=== PATIENT | male | born 1960 ===

== ENCOUNTER 2017-02-11 08:49 | Emergency (ER) | payer MEDICAID ==
[2017-02-11 08:54] VITALS: TEMP 97.9; BMI 24.4
--- NOTE | 2017-02-11 08:57 | C.PDOC ---
History Of Present Illness 56 yr old male brought in via BLS, presents to the ER for a breakthrough seizure x at 0600, similar to prior, onset LUE. Patient states he still feels like seizure may occur. Patient is s/p Keppra 1500mg this morning (usual dose). Family states the last breakthrough seizure was 1 month ago and the dosage of medicine was increased. States this is the first breakthrough seizure since the medication changes. Patient denies chest pain, SOB, nausea, vomiting or headache. Patient has a history of hemorrhagic CVA in 2016. BREAKTHROUGH SZ X 3 @ 0600. SZ SIM TO PRIOR, ONSET LUE. PS STILL FEELS LIKE SZ MAY RECUR. S/P KEPPRA 1500 MG THIS MORNING (USUAL DOSE). FAMILY STATES LAST BREAKTHROUGH SZ 1 MONTH AGO, SZ MEDS DOSE INCREASED. THIS IS FIRST BREAKTHROUGH SZ SINCE DOSE ADJUST. NO QUINTERO, [place], TRAUMA. HO hemorrhagic cva 2015 EXAM MILD DIST NONTOXIC HEENT ATRAUM NEURO AO3, APPROPRIATE INTERACTIVE AND RESPONSE TO COMMANDS. CHRONIC LUE HEMIPARESIS W OCC INVOL TREMORS. POOR COORDINATION LLE, MOTOR WNL. MOTOR, CEREBELLAR WNL RUE/RLE REMAINDER NEG Time Seen by Provider: 02/11/17 08:52 Chief Complaint (Nursing): Seizure History Per: Patient, Family History/Exam Limitations: no limitations Recent Seizure Activity Began: Just Before Arrival Past Medical History Reviewed: Historical Data, Nursing Documentation, Vital Signs Vital Signs: Last Vital Signs Temp 97.9 F 02/11/17 08:50 Pulse 59 L 02/11/17 10:03 Resp 17 02/11/17 10:03 BP 122/72 02/11/17 10:03 Pulse Ox 99 02/11/17 10:57 - Medical History PMH: Asthma, CVA, Diabetes, HTN, Hypercholesterolemia, Seizures - [facility] Procedures GAIT TRAINING/AMBULAT TREATMENT USING ASSIST EQUIPMENT (11/16/15) INTRODUCTION OF SERUM/TOX/VACCINE INTO MUSCLE, PERC APPROACH (11/16/15) THERAPEUTIC EXERCISE TREATMENT OF MUSCULOSK LOW BACK/LE (11/16/15) THERAPEUTIC EXERCISE TREATMENT OF MUSCULOSK UP BACK/UE (11/16/15) Family History: States: No Known Family Hx - Social History Hx Tobacco Use: No Hx Alcohol Use: No Hx Substance Use: No - Immunization History Hx Tetanus Toxoid Vaccination: Yes (>5yrs) Hx Influenza Vaccination: No Hx Pneumococcal Vaccination: No Review Of Systems Except As Marked, All Systems Reviewed And Found Negative. Cardiovascular: Negative for: Chest Pain Respiratory: Negative for: Shortness of Breath Gastrointestinal: Negative for: Nausea, Vomiting Neurological: Positive for: Seizures. Negative for: Headache Physical Exam - Physical Exam Appears: Non-toxic, In Acute Distress (Mild) Skin: Warm, Dry, No Rash Head: Atraumatic, Normacephalic Oral Mucosa: Moist Tongue: Normal Appearing Lips: Normal Appearing Chest: Symmetrical, No Tenderness Cardiovascular: Rhythm Regular, No Murmur Respiratory: Normal Breath Sounds, No Rales, No Rhonchi, No Stridor, No Wheezing Extremity: Other (Chronic LUE hemiparesis with occasional involuntary tremors. Poor coordination LLE. ) Neurological/Psych: Oriented x3, Normal Speech, Normal Cognition, Normal Cranial Nerves, Normal Motor ED Course And Treatment - Laboratory Results Result Diagrams: 02/11/17 09:25 02/11/17 09:25 O2 Sat by Pulse Oximetry: 99 (RA) Pulse Ox Interpretation: Normal - CT Scan/US CT - Head Other Rad Studies (CT/US): Read By Radiologist, Radiology Report Reviewed CT/US Interpretation: PROCEDURE: CT HEAD WITHOUT CONTRAST. HISTORY: BREAKTHROUGH SZ CHRONIC LLE. COMPARISON: Noncontrast head CT performed . TECHNIQUE: Axial computed tomography images were obtained through the head /brain without intravenous contrast. Radiation dose: Total exam DLP = 1091.76 mGy-cm. This CT exam was performed using one or more of the following dose reduction techniques: Automated exposure control, adjustment of the mA and/or kV according to patient size, and/or use of iterative reconstruction technique. FINDINGS: HEMORRHAGE: No intracranial hemorrhage. BRAIN: Diffuse atrophy with prominence of the ventricles and sulci noted. No mass effect or edema. Intracranial atherosclerosis. Right frontal encephalomalacia. Scattered periventricular and subcortical white matter hypodensities, which are nonspecific, but often seen with chronic microvascular ischemic disease. Please note that MRI with diffusion imaging is more sensitive in the detection of acute ischemic event. VENTRICLES: No hydrocephalus. CALVARIUM: Unremarkable. PARANASAL SINUSES: Unremarkable as visualized. No significant inflammatory changes. MASTOID AIR CELLS: Unremarkable as visualized. No inflammatory changes. OTHER FINDINGS: None. IMPRESSION: Right frontal encephalomalacia. Additional nonspecific white matter changes. Generalized atrophy. Progress - Re-Evaluation Re-evaluation Note: 02/11/17 10:56 NO RECUR SZ. TREMORS RESOLVED. CT REPORT PENDING 02/11/17 11:54 NO RECUR SZ SINCE PRIOR EVAL. PENDING NEURO APPT THIS AFTERNOON W NEW NEUROLOGIST. DC - Data Reviewed Data Reviewed: Lab, Diagnostic imaging, Old records - Critical Care Citical Care: Excluding Proc Time Critical Care Time: 120 minutes - Continuity of Care Discussed patient case with:: Patient, Family-HIPPA compliant Medical Decision Making Medical Decision Making: PLAN: * CT - Head * CBC * CMP * Ativan IVP Disposition Counseled Patient/Family Regarding: Studies Performed, Diagnosis, Need For Followup - Disposition Referrals: YOUR,NEUROLOGIST [Other] Disposition: HOME/ ROUTINE Disposition Time: 11:54 Condition: IMPROVED Instructions: Recurrent Seizures in Adults (ED) Forms: [employer] (Kyrgyz) Print Language: GREENLANDIC - Clinical Impression Clinical Impression: Breakthrough seizure - Scribe Statement The provider has reviewed the documentation as recorded by the Pao Wise Provider Attestation: All medical record entries made by the Pao were at my direction and personally dictated by me. I have reviewed the chart and agree that the record accurately reflects my personal performance of the history, physical exam, medical decision making, and the department course for this patient. I have also personally directed, reviewed, and agree with the discharge instructions and disposition.
[2017-02-11 09:29] LABS: BASO # 0.1 K/uL (0.0-0.2); BASO % 1.9 % (0.0-2.0); EOS # 0.9 K/uL (0.0-0.7); EOS % 17.5 % (0.0-4.0); HEMATOCRIT 42.8 % (35.0-51.0); LYMPH # 1.8 K/uL (1.0-4.3); LYMPH % 33.3 % (20.0-40.0); MEAN CORPUSCULAR HEMOGLOBIN 28.5 pg (27.0-31.0); MEAN CORPUSCULAR HGB CONC 33.7 g/dL (33.0-37.0); MEAN PLATELET VOLUME 9.6 fL (7.2-11.7); MONO # 0.6 K/uL (0.0-0.8); MONO % 11.8 % (0.0-10.0); NRBC % 0.1 % (0.0-2.0); RED CELL DISTRIBUTION WIDTH 15.3 % (11.5-14.5); WHITE BLOOD COUNT 5.3 K/uL (4.8-10.8)
[2017-02-11 09:34] LABS: MEAN CELL VOLUME 84.4 fL (80.0-94.0)
[2017-02-11 09:36] LABS: CHLORIDE 103 mmol/L (98-107); POTASSIUM 3.9 mmol/L (3.6-5.2); SODIUM 140 mmol/L (132-148)
[2017-02-11 09:39] LABS: BLOOD UREA NITROGEN 13 mg/dL (9-20); CALCIUM 10.5 mg/dl (8.6-10.4); CARBON DIOXIDE 21 mmol/L (22-30); GFR AFRICAN-AMERICAN > 60; GLUCOSE,RANDOM 127 mg/dL (75-110)
--- NOTE | 2017-02-11 10:46 | CT ---
PROCEDURE: CT HEAD WITHOUT CONTRAST. HISTORY: BREAKTHROUGH SZ CHRONIC LLE COMPARISON: Noncontrast head CT performed 02/28/16 TECHNIQUE: Axial computed tomography images were obtained through the head/brain without intravenous contrast. Radiation dose: Total exam DLP = 1091.76 mGy-cm. This CT exam was performed using one or more of the following dose reduction techniques: Automated exposure control, adjustment of the mA and/or kV according to patient size, and/or use of iterative reconstruction technique. FINDINGS: HEMORRHAGE: No intracranial hemorrhage. BRAIN: Diffuse atrophy with prominence of the ventricles and sulci noted. No mass effect or edema. Intracranial atherosclerosis. Right frontal encephalomalacia. Scattered periventricular and subcortical white matter hypodensities, which are nonspecific, but often seen with chronic microvascular ischemic disease. Please note that MRI with diffusion imaging is more sensitive in the detection of acute ischemic event. VENTRICLES: No hydrocephalus. CALVARIUM: Unremarkable. PARANASAL SINUSES: Unremarkable as visualized. No significant inflammatory changes. MASTOID AIR CELLS: Unremarkable as visualized. No inflammatory changes. OTHER FINDINGS: None. IMPRESSION: Right frontal encephalomalacia. Additional nonspecific white matter changes. Generalized atrophy.
[2017-02-11 12:09] VITALS: BP 106/76; PULSE 62; RESP 16; O2SAT 97
== END 2017-02-11 12:38 | disposition home or self-care (01) ==
LOC: C.ER 08:49
DX: G40.909 Epilepsy, unspecified, not intractable, without status epilepticus (principal); I10 Essential (primary) hypertension; E11.9 Type 2 diabetes mellitus without complications
CPT/HCPCS: 70450; 80048; 82948; 85025; 96374; 99285; J2060

== ENCOUNTER 2017-08-22 21:36 | Inpatient (IN) | payer MEDICAID ==
[2017-08-22 21:36] VITALS: PULSE 120; BMI 27.0
[2017-08-22] MEDS ORDERED: Sodium Chloride 0.9% 1,000 ML IV ONE (21:58)
--- NOTE | 2017-08-22 22:06 | C.PDOC ---
History Of Present Illness 57 y/o male with Hx of seizures and CVA presents to ED with complaints of having seizure at home and brought in by MICU. Hx of previous seizure due to old CVA and encephalomalacia.. Presently complaining of mild lower chest discomfort and mild upper abd pain. Chief Complaint (Nursing): Seizure History Per: Patient History/Exam Limitations: no limitations Recent Seizure Activity Began: Hours Ago: Number Of Seizures: One Length Of Seizures (Duration): Minutes (1 to 2 min,) Quality Of Seizure: Generalized Precipitating Factor(s): None Associated Symptoms: Other (left sided weakness) Post-ictal Period: Duration Unknown Severity: Moderate Pain Scale Rating Of: 2 Recent travel outside of the [place]: No Additional History Per: Family Past Medical History Reviewed: Historical Data, Nursing Documentation, Vital Signs Vital Signs: Last Vital Signs Temp 98.6 F 08/22/17 21:45 Pulse 95 H 08/22/17 21:45 Resp 20 08/22/17 21:45 BP 143/84 08/22/17 21:45 Pulse Ox 97 08/22/17 23:37 - Medical History PMH: Asthma, CVA, Diabetes, HTN, Hypercholesterolemia, Seizures Denies: Bipolar Disorder, Bronchitis, CAD, Cardia Arrhythmia, CHF, COPD, Crohn's Disease, Dementia, Depression, Diverticulitis, Emphysema, Fractures, Gastritis, Gall Bladder Disease, Peripheral Edema, Pneumonia, Post Traumatic Stress Disorder, Pulmonary Embolism, Chronic Kidney Disease, Rheumatoid Arthritis, Schizophrenia, Sickle Cell Disease, Sexually Transmitted Disease, Sleep Apnea, TIA Surgical History: No Surg Hx Denies: Appendectomy, CABG, Carotid Endarterectomy, Cholecystectomy, Coronary Stent, Pacemaker, Tonsillectomy - [facility] Procedures GAIT TRAINING/AMBULAT TREATMENT USING ASSIST EQUIPMENT (11/16/15) INTRODUCTION OF SERUM/TOX/VACCINE INTO MUSCLE, PERC APPROACH (11/16/15) THERAPEUTIC EXERCISE TREATMENT OF MUSCULOSK LOW BACK/LE (11/16/15) THERAPEUTIC EXERCISE TREATMENT OF MUSCULOSK UP BACK/UE (11/16/15) Family History: States: Unknown Family Hx - Social History Hx Tobacco Use: No Hx Alcohol Use: No Hx Substance Use: No - Immunization History Hx Tetanus Toxoid Vaccination: Yes (>5yrs) Hx Influenza Vaccination: No Hx Pneumococcal Vaccination: No Review Of Systems Constitutional: Negative for: Fever, Chills Cardiovascular: Negative for: Chest Pain Respiratory: Negative for: Shortness of Breath Gastrointestinal: Negative for: Nausea, Vomiting, Abdominal Pain, Diarrhea Neurological: Positive for: Weakness (leftsided ). Negative for: Numbness Physical Exam - Physical Exam Appears: Non-toxic, No Acute Distress Skin: Normal Color, Warm, Dry, No Diaphoretic Head: Atraumatic, Normacephalic Eye(s): bilateral: Normal Inspection, PERRL Oral Mucosa: Moist Tongue: Normal Appearing Teeth: Normal Dentition Throat: Normal Neck: Normal ROM, Supple Chest: Symmetrical, No Tenderness Cardiovascular: Rhythm Irregular (Occasionally ), No Murmur Respiratory: Normal Breath Sounds, No Decreased Breath Sounds, No Rales, No Rhonchi, No Wheezing Gastrointestinal/Abdominal: Soft, Tenderness (mild upper abd tenderness), No Distention, No Guarding, No Rebound Extremity: No Pedal Edema, No Deformity, No Swelling, Other (left sided weakness from old CVA) Extremity: Bilateral: Atraumatic, Normal Color And Temperature Neurological/Psych: Oriented x3, Normal Speech, Other (residual left sided weakness) Gait: Unable To Assess Additional Physical Exam Comments: presence of left sided weakness from old CVA. ED Course And Treatment - Laboratory Results Result Diagrams: 08/22/17 22:11 08/22/17 22:11 ECG: Interpreted By Me, Viewed By Me ECG Rhythm: Sinus Rhythm ECG Interpretation: No Acute Changes, Abnormal Interpretation Of ECG: NSR, LAD, no acute changes. abnormal tracings. Rate From EC O2 Sat by Pulse Oximetry: 97 (RA) Pulse Ox Interpretation: Normal Medical Decision Making Medical Decision Making: Administered IV fluids. Ordered EKG, blood work and CXR. Disposition Discussed With : Durga Moody Doctor Will See Patient In The: Hospital Counseled Patient/Family Regarding: Diagnosis - Disposition Disposition: HOSPITALIZED Disposition Time: 23:40 Condition: STABLE Forms: [facility] (Maori) - POA Present On Arrival: None - Clinical Impression Clinical Impression: Seizure, CVA, old, hemiparesis, Chest pain - Scribe Statement The provider has reviewed the documentation as recorded by the Scribe Jayne Prieto All medical record entries made by the Scribe were at my direction and personally dictated by me. I have reviewed the chart and agree that the record accurately reflects my personal performance of the history, physical exam, medical decision making, and the department course for this patient. I have also personally directed, reviewed, and agree with the discharge instructions and disposition.
[2017-08-22 22:15] LABS: BASO % 0.6 % (0.0-2.0); EOS # 1.1 K/uL (0.0-0.7); EOS % 13.4 % (0.0-4.0); HEMOGLOBIN 15.3 g/dL (12.0-18.0); LYMPH # 1.5 K/uL (1.0-4.3); LYMPH % 19.6 % (20.0-40.0); MEAN CELL VOLUME 86.1 fL (80.0-94.0); MEAN CORPUSCULAR HEMOGLOBIN 28.5 pg (27.0-31.0); MEAN CORPUSCULAR HGB CONC 33.2 g/dL (33.0-37.0); MEAN PLATELET VOLUME 10.1 fL (7.2-11.7); MONO # 0.8 K/uL (0.0-0.8); MONO % 10.1 % (0.0-10.0); NEUT # 4.4 K/uL (1.8-7.0); NEUT % 56.3 % (50.0-75.0); NRBC % 0.1 % (0.0-2.0); RBC 5.36 Mil/uL (4.40-5.90); RED CELL DISTRIBUTION WIDTH 14.5 % (11.5-14.5); WHITE BLOOD COUNT 7.8 K/uL (4.8-10.8)
[2017-08-22 22:26] LABS: ALB/GLOB RATIO 1.1 (1.0-2.1); ALBUMIN 4.1 g/dL (3.5-5.0); ALT/SGPT 41 U/L (21-72); AST/SGOT 29 U/L (17-59); BLOOD UREA NITROGEN 14 mg/dL (9-20); CALCIUM 10.2 mg/dl (8.6-10.4); GFR AFRICAN-AMERICAN > 60; GFR NON-AFRICAN AMERICAN > 60; LIPASE 398 U/L (23-300)
[2017-08-23 07:12] LABS: BASO # 0.1 K/uL (0.0-0.2); BASO % 0.7 % (0.0-2.0); EOS % 10.6 % (0.0-4.0); HEMOGLOBIN 14.4 g/dL (12.0-18.0); LYMPH # 3.2 K/uL (1.0-4.3); MEAN CELL VOLUME 85.7 fL (80.0-94.0); MEAN CORPUSCULAR HGB CONC 33.8 g/dL (33.0-37.0); MEAN PLATELET VOLUME 10.4 fL (7.2-11.7); MONO # 0.9 K/uL (0.0-0.8); MONO % 9.8 % (0.0-10.0); NEUT # 4.2 K/uL (1.8-7.0); NEUT % 44.9 % (50.0-75.0); NRBC % 0.1 % (0.0-2.0); RBC 4.98 Mil/uL (4.40-5.90); WHITE BLOOD COUNT 9.5 K/uL (4.8-10.8)
[2017-08-23 07:20] LABS: ALB/GLOB RATIO 1.1 (1.0-2.1); ALBUMIN 3.7 g/dL (3.5-5.0); ALT/SGPT 34 U/L (21-72); AMYLASE 114 U/L (30-110); AST/SGOT 28 U/L (17-59); BLOOD UREA NITROGEN 13 mg/dL (9-20); CALCIUM 10.3 mg/dl (8.6-10.4); GFR AFRICAN-AMERICAN > 60; GFR NON-AFRICAN AMERICAN > 60; LIPASE 326 U/L (23-300)
--- NOTE | 2017-08-23 08:04 | RAD ---
Chest x-ray single frontal view History: Seizure. Comparison: None available. Findings: Mild venous congestion. Patchy bibasilar airspace opacities. Small nodular density at the right lung base may represent prominent vessel on end. Right paratracheal prominence may represent prominent vasculature. Right hilar prominence. Tortuous aorta. Degenerative changes in the spine and shoulders. Impression: Mild venous congestion. Patchy bibasilar airspace opacities. Small nodular density at the right lung base may represent prominent vessel on end. Right paratracheal prominence may represent prominent vasculature. Right hilar prominence. Tortuous aorta. Degenerative changes in the spine and shoulders.
[2017-08-23 09:18] LABS: CK-MB 1.82 ng/mL (0.0-3.38); TROPONIN I 0.113 ng/mL (0.00-0.120)
[2017-08-23] MEDS: Multivitamin With Minerals Tab PO SCH (09:52)
[2017-08-23] MEDS ORDERED: Multiple Vitamins Tab PO SCH (10:00)
--- NOTE | 2017-08-23 13:38 | CARD ---
APPROVED REPORT EXAM: Two-dimensional and M-mode echocardiogram with Doppler and color Doppler. Other Information Quality : GoodRhythm : NSR INDICATION CVA/TIA Chest Pain RISK FACTORS Hypertension Hyperlipidemia Diabetes 2D DIMENSIONS Aortic Root (2D)3.2 (2.0-3.7cm)LVDd6.1 (3.9-5.9cm) LVDs4.7 (2.5-4.0cm)FS (%) 22.5 % M-Mode DIMENSIONS RVDd1.52 (2.1-3.2cm)Left Atrium (MM)4.80 (2.5-4.0cm) IVSd0.90 (0.7-1.1cm)Aortic Root3.71 (2.2-3.7cm) LVDd6.68 (4.0-5.6cm)Aortic Cusp Exc.2.19 (1.5-2.0cm) PWd1.33 (0.7-1.1cm)FS (%) 42 % LVDs3.90 (2.0-3.8cm)LVEF (%)71 (>50%) Aortic Valve AoV Peak Wtznjsio027.2cm/Aleksandr Peak GR.5mmHgAI P 1/2 [id number] Mitral Valve MV E Mulavegz59.6cm/sMV A Yesginjr80.8cm/sE/A ratio0.9 TDI E/Lateral E'0.0E/Medial E'0.0 Tricuspid Valve TR Peak [id number] [id number] Peak Gr.28mmHg [id number] LEFT VENTRICLE The left ventricle is moderately dilated. There is borderline concentric left ventricular hypertrophy. The left ventricular systolic function is normal. The left ventricular ejection fraction is within the normal range. There is normal LV segmental wall motion. Transmitral Doppler flow pattern is Grade I-abnormal relaxation pattern. Normal left atrial pressure by Tissue Doppler. RIGHT VENTRICLE The right ventricle is normal size. The right ventricular systolic function is normal. ATRIA The left atrium is mildly to moderately dilated. The right atrium size is normal. AORTIC VALVE The aortic valve is mildly sclerotic. Normal systolic excursion. There is mild aortic regurgitation. MITRAL VALVE The mitral valve is normal in structure. Mitral regurgitation is trace to mild. TRICUSPID VALVE The tricuspid valve is normal in structure. There is mild tricuspid regurgitation. Right ventricular systolic pressure is estimated at - 31 mmHg. PULMONIC VALVE The pulmonary valve is normal in structure. There is trace pulmonic valvular regurgitation. GREAT VESSELS The aortic root is normal in size. The IVC was not visualized. PERICARDIAL EFFUSION There is no pericardial effusion. <Conclusion> The left ventricle is moderately dilated. There is borderline concentric left ventricular hypertrophy. The left ventricular systolic function is normal. Transmitral Doppler flow pattern is Grade I-abnormal relaxation pattern. Normal left atrial pressure by Tissue Doppler. The right ventricular systolic function is normal. The left atrium is mildly to moderately dilated. There is mild aortic regurgitation. Mitral regurgitation is trace to mild. There is mild tricuspid regurgitation. Right ventricular systolic pressure is estimated at - 31 mmHg. There is no pericardial effusion.
[2017-08-23 15:36] VITALS: RESP 20
--- NOTE | 2017-08-23 18:08 | CP.PCM.CON ---
History of Present Illness - History of Present Illness History of Present Illness: 57 yr old male with a history of epilepsy, patient of who was seen by myself at [facility] when he came in for a breakthrough seizure, and presents again with a seizure most likely secondary to non compliance. told me then that he has seizures when he forgets his medication, and did so on last visit. Today, he is sleeping, but family says he is compliant. However, he had a seizure in the absence of infection or any other provocative factor. I have not had a chance to speak to to confirm current medication dose, but believe it is 1500 mg bid. OF note, patient has a history of right mca stroke, embolic, and he does not drive. pmh/psh: as above Fh/sh: , has several children, no tobacco, no etoh. not driving. all: nkda. 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 Past Patient History - Infectious Disease Hx of Infectious Diseases: None - Tetanus Immunizations Tetanus Immunization: Unknown - Past Medical History & Family History Past Medical History?: Yes - Past Social History Smoking Status: Former Smoker - CARDIAC Hx Cardia Arrhythmia: No Hx Congestive Heart Failure: No Hx Hypercholesterolemia: Yes Hx Hypertension: Yes Hx Pacemaker: No Hx Peripheral Edema: No - PULMONARY Hx Asthma: Yes Hx Bronchitis: No Hx Chronic Obstructive Pulmonary Disease (COPD): No Hx Emphysema: No Hx Pneumonia: No Hx Pulmonary Embolism: No Hx Sleep Apnea: No - NEUROLOGICAL Hx Dementia: No Hx Seizures: Yes Hx Transient Ischemic Attacks (TIA): No Other/Comment: Blood Clot. - HEENT Hx HEENT Problems: No Hx Blind: No Hx Cataracts: No Hx Deafness: No Hx Difficulty Chewing: No Hx Epistaxis: No Hx Glaucoma: No Hx Macular Degeneration: No - RENAL Hx Chronic Kidney Disease: No - ENDOCRINE/METABOLIC Hx Hyperthyroidism: No Hx Hypothyroidism: No Other/Comment: DM ( As per pt. Don't Take any medication ). - HEMATOLOGICAL/ONCOLOGICAL Hx Sickle Cell Disease: No - INTEGUMENTARY Hx Dermatological Problems: No Hx Basil Cell: No Hx Byers: No Hx Cellulitis: No Hx Eczema: No Hx Melanoma: No Hx Psoriasis: No Hx Squamous Cell: No - MUSCULOSKELETAL/RHEUMATOLOGICAL Hx Falls: Yes - GASTROINTESTINAL Hx Crohn's Disease: No Hx Diverticulitis: No Hx Gall Bladder Disease: No Hx Gastritis: No - GENITOURINARY/GYNECOLOGICAL Hx Sexually Transmitted Disorders: No - PSYCHIATRIC Hx Substance Use: No - SURGICAL HISTORY Hx Surgeries: Yes Hx Appendectomy: No Hx Carotid Endarterectomy: No Hx Cholecystectomy: No Hx Coronary Artery Bypass Graft: No Hx Coronary Stent: No Hx Tonsillectomy: No Other/Comment: Old Surgical Scar at Rt. side under Armpit and Rt. Upper Abd. - ANESTHESIA Hx Anesthesia: Yes Hx Anesthesia Reactions: No Has any member of the family had a problem w/ anesthesia?: No Meds Allergies/Adverse Reactions: Allergies Allergy/AdvReac Type Severity Reaction Status Date / Time No Known Allergies Allergy Verified 08/22/17 21:50 - Medications Medications: Current Medications Amlodipine Besylate (Norvasc) 10 mg PO DAILY [facility] Last Admin: 08/23/17 09:52 Dose: 10 mg Aspirin (Ecotrin) 81 mg PO DAILY [facility] Last Admin: 08/23/17 09:52 Dose: 81 mg Clonazepam (Klonopin) 0.[address] [facility] Cyanocobalamin (Vitamin B12 1000 Mcg Tab) 2,000 mcg PO DAILY [facility] Last Admin: 08/23/17 09:52 Dose: 2,000 mcg Heparin Sodium (Porcine) (Heparin) 5,000 units SC Q8 [facility] Last Admin: 08/23/17 14:04 Dose: 5,000 units Home Med (Pravastatin Sodium [Pravachol]) [address] [facility] Levetiracetam (Keppra) 1,500 mg PO BID [facility] Last Admin: 08/23/17 09:51 Dose: 1,500 mg Losartan Potassium (Cozaar) 100 mg PO DAILY [facility] Last Admin: 08/23/17 09:52 Dose: 100 mg Multivitamins/Minerals (Therapeutic-M Tab) 1 tab PO DAILY [facility] Last Admin: 08/23/17 09:52 Dose: 1 tab Results - Vital Signs Recent Vital Signs: Last Vital Signs Temp 98.0 F 08/23/17 15:10 Pulse 57 L 08/23/17 15:10 Resp 20 08/23/17 15:10 BP 149/85 08/23/17 15:10 Pulse Ox 96 08/23/17 15:10 - Labs Result Diagrams: 08/23/17 07:00 08/23/17 07:00 Labs: Laboratory Results - last 24 hr 08/22/17 08/22/17 08/22/17 22:11 22:11 22:11 WBC 7.8 RBC 5.36 Hgb 15.3 Hct 46.1 MCV 86.1 MCH 28.5 MCHC 33.2 RDW 14.5 Plt Count 163 MPV 10.1 Neut % (Auto) 56.3 Lymph % (Auto) 19.6 L Mcdonough % (Auto) 10.1 H Eos % (Auto) 13.4 H Baso % (Auto) 0.6 Neut # (Auto) 4.4 Lymph # (Auto) 1.5 Mcdonough # (Auto) 0.8 Eos # (Auto) 1.1 H Baso # (Auto) 0.0 D-Dimer, Quantitative 215 Sodium 142 Potassium 4.0 Chloride 104 Carbon Dioxide 23 Anion Gap 20 BUN 14 Creatinine 0.9 Est GFR ( Amer) > 60 Est GFR (Non-Af Amer) > 60 POC Glucose (mg/dL) Random Glucose 155 H Calcium 10.2 Total Bilirubin 0.7 AST 29 ALT 41 Alkaline Phosphatase 54 Total Creatine Kinase CK-MB (Mass) Troponin I 0.0240 Total Protein 7.9 Albumin 4.1 Globulin 3.8 Albumin/Globulin Ratio 1.1 Amylase Lipase 398 H 08/23/17 08/23/17 08/23/17 06:10 07:00 07:00 WBC 9.5 RBC 4.98 Hgb 14.4 Hct 42.7 MCV 85.7 MCH 29.0 MCHC 33.8 RDW 15.0 H Plt Count 184 MPV 10.4 Neut % (Auto) 44.9 L Lymph % (Auto) 34.0 Mcdonough % (Auto) 9.8 Eos % (Auto) 10.6 H Baso % (Auto) 0.7 Neut # (Auto) 4.2 Lymph # (Auto) 3.2 Mcdonough # (Auto) 0.9 H Eos # (Auto) 1.0 H Baso # (Auto) 0.1 D-Dimer, Quantitative Sodium 145 Potassium 3.6 Chloride 108 H Carbon Dioxide 26 Anion Gap 15 BUN 13 Creatinine 0.7 L Est GFR ( Amer) > 60 Est GFR (Non-Af Amer) > 60 POC Glucose (mg/dL) 85 Random Glucose 95 Calcium 10.3 Total Bilirubin 0.7 AST 28 ALT 34 Alkaline Phosphatase 49 Total Creatine Kinase CK-MB (Mass) Troponin I Total Protein 6.9 Albumin 3.7 Globulin 3.3 Albumin/Globulin Ratio 1.1 Amylase 114 H Lipase 326 H 08/23/17 08/23/17 08/23/17 08:44 11:39 16:00 WBC RBC Hgb Hct MCV MCH MCHC RDW Plt Count MPV Neut % (Auto) Lymph % (Auto) Mcdonough % (Auto) Eos % (Auto) Baso % (Auto) Neut # (Auto) Lymph # (Auto) Mcdonough # (Auto) Eos # (Auto) Baso # (Auto) D-Dimer, Quantitative Sodium Potassium Chloride Carbon Dioxide Anion Gap BUN Creatinine Est GFR ( Amer) Est GFR (Non-Af Amer) POC Glucose (mg/dL) 154 H 114 H Random Glucose Calcium Total Bilirubin AST ALT Alkaline Phosphatase Total Creatine Kinase 70 CK-MB (Mass) 1.82 Troponin I 0.1130 Total Protein Albumin Globulin Albumin/Globulin Ratio Amylase Lipase - Imaging and Cardiology CT scan - head Status: Image reviewed by me, Report reviewed by me (Ct head 08/02/17: shows old stroke right frontal lobe. 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 I feel that he is non compliant chronically with medications, and keppra can result in seizures if not taken daily. For this reason, depakote would be a better choice. I will transition him from depakote to keppra. plan: 1. Load with depakote 1000 mg IV now 2. Keppra level 3. Decrease keppra tomorrow to 750 mg bid 4. continue depakote 1000 mg bid. 5. EEG friday Thank you Dr. Bruce
[2017-08-23] MEDS ORDERED: PRAVASTATIN SODIUM 40 MG PO SCH (22:00)
--- NOTE | 2017-08-23 23:10 | CP.PCM.HP ---
History of Present Illness - History of Present Illness History of Present Illness: CC: seizure episode HPI: 57 yr old male well known to me with CVA and seizure disorder came in for a breakthrough seizure, and presents again with a seizure tonic, clonic associated with LOC ,most likely secondary to non compliance. told me then that he has seizures when he forgets his medication, and did so on last visit. Today, he is sleeping, but family says he is compliant. However, he had a seizure in the absence of infection or any other provocative factor. I have not had a chance to speak to to confirm current medication dose, but believe it is 1500 mg bid. OF note, patient has a history of right mca stroke, embolic, and he does not drive. pmh/psh: as above Fh/sh: , has several children, no tobacco, no etoh. not driving. all: nkda. Present on Admission - Present on Admission Any Indicators Present on Admission: Yes Review of Systems - Review of Systems Systems not reviewed;Unavailable: Acuity of Condition - Constitutional Constitutional: Fatigue, Lethargy - EENT Eyes: absent: As Per HPI, Blind Spots, Blurred Vision, Change in Vision, Decreased Night Vision, Diplopia, Discharge, Dry Eye, Exophthalmos, Floaters, Irritation, Itchy Eyes, Loss of Peripheral Vision, Pain, Photophobia, Requires Corrective Lenses, Sees Flashes, Spots in Vision, Tunnel Vision, Other Visual Disturbances, Loss of Vision, Other Nose/Mouth/Throat: absent: As Per HPI, Epistaxis, Nasal Congestion, Nasal Discharge, Nasal Obstruction, Nasal Trauma, Nose Pain, Post Nasal Drip, Sinus Pain, Sinus Pressure, Bleeding Gums, Change in Voice, Dental Pain, Dry Mouth, Dysphagia, Halitosis, Hoarsness, Lip Swelling, Mouth Lesions, Mouth Pain, Odynophagia, Sore Throat, Throat Swelling, Tongue Swelling, Facial Pain, Neck Pain, Neck Mass, Other - Cardiovascular Cardiovascular: Chest Pain with Activity, Syncope. absent: As Per HPI, Acrocyanosis, Chest Pain, Chest Pain at Rest, Claudication, Diaphoresis, Dyspnea , Dyspnea on Exertion, Edema, Irregular Heart Rhythm, Pain Radiating to Arm/Neck /Jaw, Leg Edema, Leg Ulcers, Lightheadedness, Orthopnea, Palpitations, Paroxysmal Nocturnal Dyspnea, Pedal Edema, Radiating Pain, Rapid Heart Rate, Slow Heart Rate, Other - Respiratory Respiratory: absent: As Per HPI, Cough, Dyspnea, Hemoptysis, Dyspnea on Exertion , Wheezing, Snoring, Stridor, Pain on Inspiration, Chest Congestion, Excessive Mucous Production, Change in Mucous Color, Pain with Coughing, Other - Gastrointestinal Gastrointestinal: absent: As Per HPI, Abdominal Pain, Belching, Bloating, Change in Bowel Habits, Change in Stool Character, Coffee Ground Emesis, Constipation, Cramping, Diarrhea, Dyspepsia, Dysphagia, Early Satiety, Excessive Flatus, Fecal Incontinence, Heartburn, Hematemesis, Hematochezia, Loose Stools, Melena, Nausea, Odynophagia, Temesmus, Vomiting, Other - Genitourinary Genitourinary: absent: As Per HPI, Change in Urinary Stream, Difficulty Urinating, Dysuria, Flank Pain, Hematuria, Pyuria, Nocturia, Urinary Incontinence, Urinary Frequency, Urinary Hesitance, Urinary Urgency, Voiding Freq/Small Amts, Freq UTI, Hx Renal/Bladder Calculi, Hx /Renal Surgery, Bladder Distension, Other - Musculoskeletal Musculoskeletal: Muscle Weakness, Myalgias, Numbness, Radiating Pain into Limb, Stiffness - Neurological Neurological: Abnormal Movements, Dizziness, Numbness, Syncope, Weakness - Psychiatric Psychiatric: Anxiety Past Patient History - Infectious Disease Hx of Infectious Diseases: None - Tetanus Immunizations Tetanus Immunization: Unknown - Past Medical History & Family History Past Medical History?: Yes - Past Social History Smoking Status: Former Smoker - CARDIAC Hx Cardia Arrhythmia: No Hx Congestive Heart Failure: No Hx Hypercholesterolemia: Yes Hx Hypertension: Yes Hx Pacemaker: No Hx Peripheral Edema: No - PULMONARY Hx Asthma: Yes Hx Bronchitis: No Hx Chronic Obstructive Pulmonary Disease (COPD): No Hx Emphysema: No Hx Pneumonia: No Hx Pulmonary Embolism: No Hx Sleep Apnea: No - NEUROLOGICAL Hx Dementia: No Hx Seizures: Yes Hx Transient Ischemic Attacks (TIA): No Other/Comment: Blood Clot. - HEENT Hx HEENT Problems: No Hx Blind: No Hx Cataracts: No Hx Deafness: No Hx Difficulty Chewing: No Hx Epistaxis: No Hx Glaucoma: No Hx Macular Degeneration: No - RENAL Hx Chronic Kidney Disease: No - ENDOCRINE/METABOLIC Hx Hyperthyroidism: No Hx Hypothyroidism: No Other/Comment: DM ( As per pt. Don't Take any medication ). - HEMATOLOGICAL/ONCOLOGICAL Hx Sickle Cell Disease: No - INTEGUMENTARY Hx Dermatological Problems: No Hx Basil Cell: No Hx Byers: No Hx Cellulitis: No Hx Eczema: No Hx Melanoma: No Hx Psoriasis: No Hx Squamous Cell: No - MUSCULOSKELETAL/RHEUMATOLOGICAL Hx Falls: Yes - GASTROINTESTINAL Hx Crohn's Disease: No Hx Diverticulitis: No Hx Gall Bladder Disease: No Hx Gastritis: No - GENITOURINARY/GYNECOLOGICAL Hx Sexually Transmitted Disorders: No - PSYCHIATRIC Hx Substance Use: No - SURGICAL HISTORY Hx Surgeries: Yes Hx Appendectomy: No Hx Carotid Endarterectomy: No Hx Cholecystectomy: No Hx Coronary Artery Bypass Graft: No Hx Coronary Stent: No Hx Tonsillectomy: No Other/Comment: Old Surgical Scar at Rt. side under Armpit and Rt. Upper Abd. - ANESTHESIA Hx Anesthesia: Yes Hx Anesthesia Reactions: No Has any member of the family had a problem w/ anesthesia?: No Meds Allergies/Adverse Reactions: Allergies Allergy/AdvReac Type Severity Reaction Status Date / Time No Known Allergies Allergy Verified 08/22/17 21:50 Physical Exam - Constitutional Appears: No Acute Distress, Confused - Head Exam Head Exam: ATRAUMATIC, NORMAL INSPECTION, NORMOCEPHALIC - Eye Exam Eye Exam: EOMI, Normal appearance, PERRL Pupil Exam: NORMAL ACCOMODATION, PERRL - ENT Exam ENT Exam: Mucous Membranes Moist, Normal Exam - Respiratory Exam Respiratory Exam: Clear to Auscultation Bilateral, NORMAL BREATHING PATTERN - Cardiovascular Exam Cardiovascular Exam: REGULAR RHYTHM, +S2 - GI/Abdominal Exam GI & Abdominal Exam: Normal Bowel Sounds, Soft. absent: Tenderness - Rectal Exam Rectal Exam: Deferred - Neurological Exam Additional comments: neuro exam: significant for left hemiplegia, with contracture in left recreation adviser and 4 /5 left leg. Results - Vital Signs Recent Vital Signs: Last Vital Signs Temp 98.0 F 08/23/17 15:10 Pulse 57 L 08/23/17 15:10 Resp 20 08/23/17 15:10 BP 149/85 08/23/17 15:10 Pulse Ox 96 08/23/17 15:10 - Labs Result Diagrams: 08/23/17 07:00 08/23/17 07:00 Labs: Laboratory Results - last 24 hr 08/23/17 08/23/17 08/23/17 06:10 07:00 07:00 WBC 9.5 RBC 4.98 Hgb 14.4 Hct 42.7 MCV 85.7 MCH 29.0 MCHC 33.8 RDW 15.0 H Plt Count 184 MPV 10.4 Neut % (Auto) 44.9 L Lymph % (Auto) 34.0 [place] % (Auto) 9.8 Eos % (Auto) 10.6 H Baso % (Auto) 0.7 Neut # (Auto) 4.2 Lymph # (Auto) 3.2 [place] # (Auto) 0.9 H Eos # (Auto) 1.0 H Baso # (Auto) 0.1 Sodium 145 Potassium 3.6 Chloride 108 H Carbon Dioxide 26 Anion Gap 15 BUN 13 Creatinine 0.7 L Est GFR ( Amer) > 60 Est GFR (Non-Af Amer) > 60 POC Glucose (mg/dL) 85 Random Glucose 95 Calcium 10.3 Total Bilirubin 0.7 AST 28 ALT 34 Alkaline Phosphatase 49 Total Creatine Kinase CK-MB (Mass) Troponin I Total Protein 6.9 Albumin 3.7 Globulin 3.3 Albumin/Globulin Ratio 1.1 Amylase 114 H Lipase 326 H 08/23/17 08/23/17 08/23/17 08:44 11:39 16:00 WBC RBC Hgb Hct MCV MCH MCHC RDW Plt Count MPV Neut % (Auto) Lymph % (Auto) [place] % (Auto) Eos % (Auto) Baso % (Auto) Neut # (Auto) Lymph # (Auto) [place] # (Auto) Eos # (Auto) Baso # (Auto) Sodium Potassium Chloride Carbon Dioxide Anion Gap BUN Creatinine Est GFR ( Amer) Est GFR (Non-Af Amer) POC Glucose (mg/dL) 154 H 114 H Random Glucose Calcium Total Bilirubin AST ALT Alkaline Phosphatase Total Creatine Kinase 70 CK-MB (Mass) 1.82 Troponin I 0.1130 Total Protein Albumin Globulin Albumin/Globulin Ratio Amylase Lipase 08/23/17 21:04 WBC RBC Hgb Hct MCV MCH MCHC RDW Plt Count MPV Neut % (Auto) Lymph % (Auto) [place] % (Auto) Eos % (Auto) Baso % (Auto) Neut # (Auto) Lymph # (Auto) [place] # (Auto) Eos # (Auto) Baso # (Auto) Sodium Potassium Chloride Carbon Dioxide Anion Gap BUN Creatinine Est GFR ( Amer) Est GFR (Non-Af Amer) POC Glucose (mg/dL) 111 H Random Glucose Calcium Total Bilirubin AST ALT Alkaline Phosphatase Total Creatine Kinase CK-MB (Mass) Troponin I Total Protein Albumin Globulin Albumin/Globulin Ratio Amylase Lipase Assessment & Plan (1) CVA, old, hemiparesis Status: Acute (2) Seizure Status: Acute (3) DM2 (diabetes mellitus, type 2) Status: Chronic (4) HTN (hypertension) Status: Chronic
[2017-08-24] MEDS: Multivitamin With Minerals Tab PO SCH (09:30)
--- NOTE | 2017-08-24 23:46 | CP.PCM.PN ---
Subjective - Date & Time of Evaluation Date of Evaluation: 08/24/17 Time of Evaluation: 18:15 - Subjective Subjective: Pt seen and examined, afebrile, no acute distress Objective - Vital Signs/Intake and Output Vital Signs (last 24 hours): Temp Pulse Resp BP Pulse Ox 98.2 F 57 L 20 133/80 96 08/24/17 15:30 08/24/17 15:30 08/24/17 15:30 08/24/17 15:30 08/24/17 15:30 Intake and Output: 08/24/17 08/25/17 18:59 06:59 Intake Total 400 Balance 400 - Medications Medications: Current Medications Amlodipine Besylate (Norvasc) 10 mg PO DAILY [facility] Last Admin: 08/24/17 09:30 Dose: 10 mg Aspirin (Ecotrin) 81 mg PO DAILY [facility] Last Admin: 08/24/17 09:30 Dose: 81 mg Clonazepam (Klonopin) 0.5 mg PO HS [facility] Last Admin: 08/24/17 22:10 Dose: 0.5 mg Cyanocobalamin (Vitamin B12 1000 Mcg Tab) 2,000 mcg PO DAILY [facility] Last Admin: 08/24/17 09:30 Dose: 2,000 mcg Diphenhydramine HCl (Benadryl) 25 mg PO Q8H PRN PRN Reason: Allergy symptoms Last Admin: 08/24/17 22:11 Dose: 25 mg Heparin Sodium (Porcine) (Heparin) 5,000 units SC Q8 [facility] Last Admin: 08/24/17 22:12 Dose: 5,000 units Levetiracetam (Keppra) 750 mg PO BID [facility] Last Admin: 08/24/17 18:20 Dose: 750 mg Losartan Potassium (Cozaar) 100 mg PO DAILY [facility] Last Admin: 08/24/17 09:30 Dose: 100 mg Multivitamins/Minerals (Therapeutic-M Tab) 1 tab PO DAILY [facility] Last Admin: 08/24/17 09:30 Dose: 1 tab Rosuvastatin Calcium (Crestor) 5 mg PO HS [facility] Last Admin: 08/24/17 22:11 Dose: 5 mg Valproate Sodium (Depakene Cap) 1,000 mg PO BID [facility] Last Admin: 08/24/17 18:27 Dose: 1,000 mg - Labs Labs: 08/23/17 07:08/23/17 07:00 Assessment and Plan (1) CVA, old, hemiparesis Status: Acute (2) Seizure Status: Acute (3) DM2 (diabetes mellitus, type 2) Status: Chronic (4) HTN (hypertension) Status: Chronic
--- NOTE | 2017-08-25 07:19 | CP.PCM.PN ---
Subjective - Date & Time of Evaluation Date of Evaluation: 08/25/17 Time of Evaluation: 07:17 - Subjective Subjective: PATIENT SEEN AND EVENTS NOTED POST STROKE SEIZURES AND [place] LEFT HEMIPARESIS ARM >> LEG DUAL AEDs FOR HIS SEIZURES I PREFER AND TITRATE ALREADY STARTED VPA WILL SEE EEG AND FOLLOW WITH CURRENT MEDS IF CLINICALLY STABLE AND CAN BE D/FIONA AND FOLLOW ME OP. THANKS Objective - Vital Signs/Intake and Output Vital Signs (last 24 hours): Temp Pulse Resp BP Pulse Ox 98.2 F 52 L 20 147/72 97 08/24/17 23:45 08/25/17 04:20 08/24/17 23:45 08/24/17 23:45 08/24/17 23:45 Intake and Output: 08/25/17 08/25/17 06:59 18:59 Intake Total 120 Output Total 575 Balance -455 - Medications Medications: Current Medications Amlodipine Besylate (Norvasc) 10 mg PO DAILY [facility] [place] Last Admin: 08/24/17 09:30 Dose: 10 mg Aspirin (Ecotrin) 81 mg PO DAILY [facility] [place] Last Admin: 08/24/17 09:30 Dose: 81 mg Clonazepam (Klonopin) 0.5 mg PO HS [facility] [place] Last Admin: 08/24/17 22:10 Dose: 0.5 mg Cyanocobalamin (Vitamin B12 1000 Mcg Tab) 2,000 mcg PO DAILY [facility] [place] Last Admin: 08/24/17 09:30 Dose: 2,000 mcg Diphenhydramine HCl (Benadryl) 25 mg PO Q8H PRN PRN Reason: Allergy symptoms Last Admin: 08/24/17 22:11 Dose: 25 mg Heparin Sodium (Porcine) (Heparin) 5,000 units SC Q8 [facility] [place] Last Admin: 08/25/17 06:13 Dose: 5,000 units Levetiracetam (Keppra) 750 mg PO BID [facility] [place] Last Admin: 08/24/17 18:20 Dose: 750 mg Losartan Potassium (Cozaar) 100 mg PO DAILY [facility] [place] Last Admin: 08/24/17 09:30 Dose: 100 mg Multivitamins/Minerals (Therapeutic-M Tab) 1 tab PO DAILY [facility] [place] Last Admin: 08/24/17 09:30 Dose: 1 tab Rosuvastatin Calcium (Crestor) 5 mg PO HS [facility] Last Admin: 08/24/17 22:11 Dose: 5 mg Valproate Sodium (Depakene Cap) 1,000 mg PO BID [facility] Last Admin: 08/24/17 18:27 Dose: 1,000 mg - Labs Labs: 08/23/17 07:00 08/23/17 07:00
[2017-08-25 08:32] LABS: ALB/GLOB RATIO 1.1 (1.0-2.1); ALBUMIN 3.8 g/dL (3.5-5.0); ALT/SGPT 35 U/L (21-72); AST/SGOT 28 U/L (17-59); BLOOD UREA NITROGEN 12 mg/dL (9-20); CALCIUM 10.3 mg/dl (8.6-10.4); GFR AFRICAN-AMERICAN > 60; GFR NON-AFRICAN AMERICAN > 60
[2017-08-25] MEDS: Multivitamin With Minerals Tab PO SCH (09:59)
--- NOTE | 2017-08-25 10:54 | PN ---
DATE: 08/25/2017 REASON FOR EVALUATION: Recurrent seizures. The patient was admitted on 08/23/2017 for seizures. From neurological point of view, I was called in to evaluate him for further management because originally the patient was of mine and the family requested me to follow the patient. HISTORY OF PRESENT ILLNESS Mr. 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 He is being treated with Keppra 750 mg two tablets twice a day, that means 3000 mg per day. The patient has been compliant with medication. However, the evaluation by the neurologist stated that he was noncompliant with the medication, and he has been having recurrent seizures. The patient was started on Depakote on top of Keppra. The patient has been doing seizure free since hospitalization. PAST MEDICAL HISTORY: Stroke, seizures, hypertension, dyslipidemia, obstructive sleep apnea versus central sleep apnea. PERSONAL HISTORY: Denies smoking or alcohol use. PHYSICAL EXAMINATION: VITAL SIGNS: Blood pressure 147/72, mean artery pressure of 97, respiratory rate 16, temperature afebrile. NECK: Supple. No carotid bruits. HEART: Sounds regular. CHEST: Fair air entry. EXTREMITIES: No edema in legs. NEUROLOGIC EXAMINATION: MENTAL STATUS EXAMINATION: The patient is awake, alert, and oriented to person, place, and time. Speech is to his baseline. Mild left facial asymmetry. Left hemiplegia with diffuse atrophy on arm more than his legs. Deep tendon reflexes, hyperreflexic on the left side to compare with the right side. Left plantars are upgoing. No toxic side effect seen from Keppra as well as Depakote. RECOMMENDATIONS: 1. Continue the current medication. 2. Electroencephalogram to be done today. If medically stable, the patient can be discharged and should have followup visit with me as outpatient. In meantime, let him continue Keppra 1500 mg twice a day with Depakote 1000 mg twice a day. Medications will be adjusted as outpatient. Clem Andrews MD [facility] # [id number]
--- NOTE | 2017-08-25 17:02 | CARD ---
APPROVED REPORT EKG Measurement Heart [id number] VT [id number] <Conclusion> Normal sinus rhythm Left axis deviation Abnormal ECG
--- NOTE | 2017-08-25 19:52 | US ---
Abdominal ultrasound History: Abnormal enzymes. Comparison: CT scan dated 07/23/2014 Technique: Real-time sonography was performed through the abdomen. Findings: Liver: 14.8 centimeters in length. Increased echogenicity of the hepatic parenchymal cortex suggestive for fatty infiltration versus hepatic parenchymal disease. Clinical correlation. Gallbladder: No calculi or sludge. Normal wall thickness of 1.6 millimeters. Negative sonographic Terrell's sign. Common bile duct measures 4.3 millimeters, within normal limits. Pancreas not well visualized. Spleen measures 10.8 centimeters in length, within normal limits. Visualized aorta and IVC are preserved. Right kidney: 11.6 x 5.6 x 4.9 centimeters. No calculi or hydronephrosis. Left Kidney: 11.4 x 5.4 x 5.9 centimeters. No calculi or hydronephrosis. Impression: Increased echogenicity of the hepatic parenchymal cortex suggestive for fatty infiltration versus hepatic parenchymal disease. Clinical correlation. Limited visualization of the pancreas.
--- NOTE | 2017-08-25 21:32 | CP.PCM.PN ---
Subjective - Date & Time of Evaluation Date of Evaluation: 08/25/17 Time of Evaluation: 18:30 - Subjective Subjective: patient seen and examined, on medical management Objective - Vital Signs/Intake and Output Vital Signs (last 24 hours): Temp Pulse Resp BP Pulse Ox 98.2 F 55 L 20 129/76 95 08/25/17 15:58 08/25/17 16:01 08/25/17 15:58 08/25/17 15:58 08/25/17 15:58 - Medications Medications: Current Medications Amlodipine Besylate (Norvasc) 10 mg PO DAILY [facility] Last Admin: 08/25/17 09:59 Dose: 10 mg Aspirin (Ecotrin) 81 mg PO DAILY [facility] Last Admin: 08/25/17 09:59 Dose: 81 mg Clonazepam (Klonopin) 0.5 mg PO HS [facility] Last Admin: 08/24/17 22:10 Dose: 0.5 mg Cyanocobalamin (Vitamin B12 1000 Mcg Tab) 2,000 mcg PO DAILY [facility] Last Admin: 08/25/17 10:05 Dose: 2,000 mcg Diphenhydramine HCl (Benadryl) 25 mg PO Q8H PRN PRN Reason: Allergy symptoms Last Admin: 08/24/17 22:11 Dose: 25 mg Heparin Sodium (Porcine) (Heparin) 5,000 units SC Q8 [facility] Last Admin: 08/25/17 13:27 Dose: 5,000 units Levetiracetam (Keppra) 750 mg PO BID [facility] Last Admin: 08/25/17 17:23 Dose: 750 mg Losartan Potassium (Cozaar) 100 mg PO DAILY [facility] Last Admin: 08/25/17 09:59 Dose: 100 mg Multivitamins/Minerals (Therapeutic-M Tab) 1 tab PO DAILY [facility] Last Admin: 08/25/17 09:59 Dose: 1 tab Rosuvastatin Calcium (Crestor) 5 mg PO HS [facility] Last Admin: 08/24/17 22:11 Dose: 5 mg Valproate Sodium (Depakene Cap) 1,000 mg PO BID [facility] Last Admin: 08/25/17 17:25 Dose: 1,000 mg - Labs Labs: 08/23/17 07:00 08/25/17 08:06 Assessment and Plan (1) CVA, old, hemiparesis Status: Acute (2) Seizure Status: Acute (3) DM2 (diabetes mellitus, type 2) Status: Chronic (4) HTN (hypertension) Status: Chronic
--- NOTE | 2017-08-25 21:59 | CP.PCM.CON ---
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 He was treated in the Hospital in [place], and he said that he had a dvt. He had a stroke about a year later, and the etiology was unknown. The pt is a non smoker and has DM and HTN. The pt has had many admissions to the hospital for seizures and has been admitted for again for the same. He was just at [facility] for the same and was noted to have rapid atrial fibrillation in the ER, but converted to NSR after I cardezem. A wood hacker saw him and did not advise anticoagulation. An echo was performed nor: mild LVH, borderline overall LV Ef. Pt has borderline sinus bradycardia, without negative chronotropic agents. His says that he snores a lot. Review of Systems - Review of Systems All systems: reviewed and no additional remarkable complaints except (left hemiplegia) Past Patient History - Infectious Disease Hx of Infectious Diseases: None - Tetanus Immunizations Tetanus Immunization: Unknown - Past Medical History & Family History Past Medical History?: Yes - Past Social History Smoking Status: Former Smoker - CARDIAC Hx Hypercholesterolemia: Yes Hx Hypertension: Yes - PULMONARY Hx Chronic Obstructive Pulmonary Disease (COPD): No - NEUROLOGICAL Hx Dementia: No Hx Seizures: Yes Hx Transient Ischemic Attacks (TIA): No Other/Comment: Blood Clot. - HEENT Hx HEENT Problems: No Hx Blind: No Hx Cataracts: No Hx Deafness: No Hx Difficulty Chewing: No Hx Epistaxis: No Hx Glaucoma: No Hx Macular Degeneration: No - RENAL Hx Chronic Kidney Disease: No - ENDOCRINE/METABOLIC Hx Hypothyroidism: No - HEMATOLOGICAL/ONCOLOGICAL Hx Sickle Cell Disease: No - INTEGUMENTARY Hx Dermatological Problems: No Hx Basil Cell: No Hx Byers: No Hx Cellulitis: No Hx Eczema: No Hx Melanoma: No Hx Psoriasis: No Hx Squamous Cell: No - MUSCULOSKELETAL/RHEUMATOLOGICAL Hx Falls: Yes - GASTROINTESTINAL Hx Crohn's Disease: No Hx Diverticulitis: No Hx Gall Bladder Disease: No Hx Gastritis: No - GENITOURINARY/GYNECOLOGICAL Hx Sexually Transmitted Disorders: No - PSYCHIATRIC Hx Substance Use: No - SURGICAL HISTORY Hx Surgeries: Yes Hx Appendectomy: No Hx Carotid Endarterectomy: No Hx Cholecystectomy: No Hx Coronary Artery Bypass Graft: No Hx Coronary Stent: No Hx Tonsillectomy: No Other/Comment: Old Surgical Scar at Rt. side under Armpit and Rt. Upper Abd. - ANESTHESIA Hx Anesthesia: Yes Hx Anesthesia Reactions: No Has any member of the family had a problem w/ anesthesia?: No Meds Allergies/Adverse Reactions: Allergies Allergy/AdvReac Type Severity Reaction Status Date / Time No Known Allergies Allergy Verified 08/22/17 21:50 - Medications Medications: Current Medications Amlodipine Besylate (Norvasc) 10 mg PO DAILY [facility] Last Admin: 08/25/17 09:59 Dose: 10 mg Aspirin (Ecotrin) 81 mg PO DAILY [facility] Last Admin: 08/25/17 09:59 Dose: 81 mg Clonazepam (Klonopin) 0.5 mg PO HS [facility] Last Admin: 08/25/17 21:39 Dose: 0.5 mg Cyanocobalamin (Vitamin B12 1000 Mcg Tab) 2,000 mcg PO DAILY [facility] Last Admin: 08/25/17 10:05 Dose: 2,000 mcg Diphenhydramine HCl (Benadryl) 25 mg PO Q8H PRN PRN Reason: Allergy symptoms Last Admin: 08/25/17 21:41 Dose: 25 mg Heparin Sodium (Porcine) (Heparin) 5,000 units SC Q8 [facility] Last Admin: 08/25/17 21:39 Dose: 5,000 units Levetiracetam (Keppra) 750 mg PO BID [facility] Last Admin: 08/25/17 17:23 Dose: 750 mg Losartan Potassium (Cozaar) 100 mg PO DAILY [facility] Last Admin: 08/25/17 09:59 Dose: 100 mg Multivitamins/Minerals (Therapeutic-M Tab) 1 tab PO DAILY [facility] Last Admin: 08/25/17 09:59 Dose: 1 tab Rosuvastatin Calcium (Crestor) 5 mg PO HS [facility] Last Admin: 08/25/17 21:39 Dose: 5 mg Valproate Sodium (Depakene Cap) 1,000 mg PO BID [facility] Last Admin: 08/25/17 17:25 Dose: 1,000 mg Physical Exam - Constitutional Appears: Chronically Ill - Head Exam Head Exam: ATRAUMATIC - Eye Exam Eye Exam: Normal appearance - ENT Exam ENT Exam: Mucous Membranes Moist - Neck Exam Neck exam: Positive for: Normal Inspection - Respiratory Exam Respiratory Exam: Clear to Auscultation Bilateral - Cardiovascular Exam Cardiovascular Exam: REGULAR RHYTHM - GI/Abdominal Exam GI & Abdominal Exam: Normal Bowel Sounds - Exam External exam: NORMAL EXTERNAL EXAM - Extremities Exam Extremities exam: Positive for: normal inspection - Back Exam Back exam: NORMAL INSPECTION - Neurological Exam Neurological exam: Alert, Normal Gait (left hemiplegia) - Psychiatric Exam Psychiatric exam: Normal Affect, Normal Mood - Skin Skin Exam: Normal Color Results - Vital Signs Recent Vital Signs: Last Vital Signs Temp 98.2 F 08/25/17 15:58 Pulse 55 L 08/25/17 16:01 Resp 20 08/25/17 15:58 BP 129/76 08/25/17 15:58 Pulse Ox 95 08/25/17 15:58 - Labs Result Diagrams: 08/23/17 07:00 08/25/17 08:06 Labs: Laboratory Results - last 24 hr 08/25/17 08/25/17 08/25/17 06:17 08:06 11:24 Sodium 144 Potassium 3.9 Chloride 107 Carbon Dioxide 24 Anion Gap 17 BUN 12 Creatinine 0.8 Est GFR ( Amer) > 60 Est GFR (Non-Af Amer) > 60 POC Glucose (mg/dL) 72 Random Glucose 114 H Calcium 10.3 Total Bilirubin 1.0 AST 28 ALT 35 Alkaline Phosphatase 53 Ammonia 40 H Total Protein 7.2 Albumin 3.8 Globulin 3.4 Albumin/Globulin Ratio 1.1 Valproic Acid 08/25/17 08/25/17 08/25/17 11:24 11:41 21:36 Sodium Potassium Chloride Carbon Dioxide Anion Gap BUN Creatinine Est GFR ( Amer) Est GFR (Non-Af Amer) POC Glucose (mg/dL) 145 H 140 H Random Glucose Calcium Total Bilirubin AST ALT Alkaline Phosphatase Ammonia Total Protein Albumin Globulin Albumin/Globulin Ratio Valproic Acid 46.1 L - EKG Data EKG shows normal: Sinus rhythm (no ischemic changes) Assessment & Plan - Assessment and Plan (Free Text) Assessment: This patient has episodic atrial fibrillation, the likely cause of his stroke. Unless neurology feels otherwise, pt should be anticoagulated. Pt is followed closely by his family and he has not fallen. I will discuss with Dr Andrews The patient has s bradycardia and adding a beta suzanne or ca suzanne would likely be ineffective, as only trivail dose would be possible. Will consider tikosyn, and I will discuss with Dr Kaye of EP. Pt snores still, and sleep apnea might be the cause of his afib. An outpatient sleep study is advised. Also, treating sleep apnea might help seizures.
[2017-08-26 08:10] VITALS: BP 126/84; TEMP 97.8; O2SAT 96
--- NOTE | 2017-08-26 09:08 | CP.PCM.PN ---
Subjective - Date & Time of Evaluation Date of Evaluation: 08/26/17 Time of Evaluation: 09:07 - Subjective Subjective: I discussed the case with Dr Andrews and Dr Kaye of EP. Pt is advised to start eliquis 5 bid. No antiarrhythmics for now. Please have pt f/u with me within 2 weeks. I discussed risks and benefits of anticoagulation with family. An outpatient sleep study will be arranged after I see the patient in the office. Objective - Vital Signs/Intake and Output Vital Signs (last 24 hours): Temp Pulse Resp BP Pulse Ox 97.8 F 61 20 126/84 96 08/26/17 07:35 08/26/17 07:35 08/26/17 07:35 08/26/17 07:35 08/26/17 07:35 Intake and Output: 08/26/17 08/26/17 06:59 18:59 Intake Total 120 Output Total 500 Balance -380 - Medications Medications: Current Medications Amlodipine Besylate (Norvasc) 10 mg PO DAILY [facility] Last Admin: 08/25/17 09:59 Dose: 10 mg Aspirin (Ecotrin) 81 mg PO DAILY [facility] Last Admin: 08/25/17 09:59 Dose: 81 mg Clonazepam (Klonopin) 0.5 mg PO HS [facility] Last Admin: 08/25/17 21:39 Dose: 0.5 mg Cyanocobalamin (Vitamin B12 1000 Mcg Tab) 2,000 mcg PO DAILY [facility] Last Admin: 08/25/17 10:05 Dose: 2,000 mcg Diphenhydramine HCl (Benadryl) 25 mg PO Q8H PRN PRN Reason: Allergy symptoms Last Admin: 08/25/17 21:41 Dose: 25 mg Levetiracetam (Keppra) 750 mg PO BID [facility] Last Admin: 08/25/17 17:23 Dose: 750 mg Losartan Potassium (Cozaar) 100 mg PO DAILY [facility] Last Admin: 08/25/17 09:59 Dose: 100 mg Multivitamins/Minerals (Therapeutic-M Tab) 1 tab PO DAILY [facility] Last Admin: 08/25/17 09:59 Dose: 1 tab Rosuvastatin Calcium (Crestor) 5 mg PO HS [facility] Last Admin: 08/25/17 21:39 Dose: 5 mg Valproate Sodium (Depakene Cap) 1,000 mg PO BID [facility] Last Admin: 08/25/17 17:25 Dose: 1,000 mg - Labs Labs: 08/23/17 07:00 08/25/17 08:06
[2017-08-26] MEDS: Multivitamin With Minerals Tab PO SCH (09:21)
[2017-08-26 10:53] VITALS: PULSE 51
--- NOTE | 2017-08-26 12:46 | CP.PCM.PN ---
Subjective - Date & Time of Evaluation Date of Evaluation: 08/26/17 Time of Evaluation: 12:45 - Subjective Subjective: Patient seen today, denies any dizziness headache, no further seizure reported since admission HR in 50,s no overnight events recorded on monitor , Objective - Vital Signs/Intake and Output Vital Signs (last 24 hours): Temp Pulse Resp BP Pulse Ox 97.8 F 51 L 20 126/84 96 08/26/17 07:35 08/26/17 08:00 08/26/17 07:35 08/26/17 07:35 08/26/17 07:35 Intake and Output: 08/26/17 08/26/17 06:59 18:59 Intake Total 120 Output Total 500 Balance -380 - Medications Medications: Current Medications Amlodipine Besylate (Norvasc) 10 mg PO DAILY [facility] Last Admin: 08/26/17 09:22 Dose: Not Given Apixaban (Eliquis) 5 mg PO DAILY [facility] Clonazepam (Klonopin) 0.5 mg PO HS [facility] Last Admin: 08/25/17 21:39 Dose: 0.5 mg Cyanocobalamin (Vitamin B12 1000 Mcg Tab) 2,000 mcg PO DAILY [facility] Last Admin: 08/26/17 09:22 Dose: 2,000 mcg Diphenhydramine HCl (Benadryl) 25 mg PO Q8H PRN PRN Reason: Allergy symptoms Last Admin: 08/25/17 21:41 Dose: 25 mg Levetiracetam (Keppra) 750 mg PO BID [facility] Last Admin: 08/26/17 09:21 Dose: 750 mg Losartan Potassium (Cozaar) 100 mg PO DAILY [facility] Last Admin: 08/26/17 09:22 Dose: 100 mg Multivitamins/Minerals (Therapeutic-M Tab) 1 tab PO DAILY [facility] Last Admin: 08/26/17 09:21 Dose: 1 tab Rosuvastatin Calcium (Crestor) 5 mg PO HS [facility] Last Admin: 08/25/17 21:39 Dose: 5 mg Valproate Sodium (Depakene Cap) 1,000 mg PO BID [facility] Last Admin: 08/26/17 09:21 Dose: 1,000 mg - Labs Labs: 08/23/17 07:00 08/25/17 08:06 - Constitutional Appears: Well, No Acute Distress - Cardiovascular Exam Cardiovascular Exam: Bradycardia, REGULAR RHYTHM, +S1, +S2 - Neurological Exam Neurological Exam: Alert, Awake, Oriented x3 Assessment and Plan - Assessment and Plan (Free Text) Assessment: a/p 57 y/o male with pmHx of seizures , CVA admitted with seizure at home on monitor noted bradycardia 48-[address] Alvarez consulted DR. Garcia seen patient today and recommends to continue eliquis 5 mg po bid and f/u out patient in his office in 1-2 weeks D/W Dr. Andrews, cleared for discharge from neurology stand point and continue keppra 1500 mg po bid and depokote 1,000 mg bid and f/u with his office in 1 week D/W Dr. Moody cleared fro discharge home today and f/u with Dr. Moody office in 1 week Discharge plan discussed with patient and via bearing machine operator , who understands and agrees with plan
--- NOTE | 2017-08-26 22:56 | CP.PCM.DIS ---
Provider - Provider Date of Admission: 08/22/17 23:41 Attending physician: Durga Moody MD Time Spent in preparation of Discharge (in minutes): 15 Diagnosis - Discharge Diagnosis (1) CVA, old, hemiparesis Status: Acute (2) Seizure Status: Acute (3) DM2 (diabetes mellitus, type 2) Status: Chronic (4) HTN (hypertension) Status: Chronic Hospital Course - Lab Results Lab Results: Most Recent Lab Values WBC 9.5 K/uL (4.8-10.8) 08/23/17 07:00 RBC 4.98 Mil/uL (4.40-5.90) 08/23/17 07:00 Hgb 14.4 g/dL (12.0-18.0) 08/23/17 07:00 Hct 42.7 % (35.0-51.0) 08/23/17 07:00 MCV 85.7 fL (80.0-94.0) 08/23/17 07:00 MCH 29.0 pg (27.0-31.0) 08/23/17 07:00 MCHC 33.8 g/dL (33.0-37.0) 08/23/17 07:00 RDW 15.0 % (11.5-14.5) H 08/23/17 07:00 Plt Count 184 K/uL (130-400) 08/23/17 07:00 MPV 10.4 fL (7.2-11.7) 08/23/17 07:00 Neut % (Auto) 44.9 % (50.0-75.0) L 08/23/17 07:00 Lymph % (Auto) 34.0 % (20.0-40.0) 08/23/17 07:00 Vilas % (Auto) 9.8 % (0.0-10.0) 08/23/17 07:00 Eos % (Auto) 10.6 % (0.0-4.0) H 08/23/17 07:00 Baso % (Auto) 0.7 % (0.0-2.0) 08/23/17 07:00 Neut # (Auto) 4.2 K/uL (1.8-7.0) 08/23/17 07:00 Lymph # (Auto) 3.2 K/uL (1.0-4.3) 08/23/17 07:00 [place]as # (Auto) 0.9 K/uL (0.0-0.8) H 08/23/17 07:00 Eos # (Auto) 1.0 K/uL (0.0-0.7) H 08/23/17 07:00 Baso # (Auto) 0.1 K/uL (0.0-0.2) 08/23/17 07:00 D-Dimer, Quantitative 215 ng/mlDDU (0-243) 08/22/17 22:11 Sodium 144 mmol/L (132-148) 08/25/17 08:06 Potassium 3.9 mmol/L (3.6-5.2) 08/25/17 08:06 Chloride 107 mmol/L (98-107) 08/25/17 08:06 Carbon Dioxide 24 mmol/L (22-30) 08/25/17 08:06 Anion Gap 17 (10-20) 08/25/17 08:06 BUN 12 mg/dL (9-20) 08/25/17 08:06 Creatinine 0.8 mg/dL (0.8-1.5) 08/25/17 08:06 Est GFR ( Amer) > 60 08/25/17 08:06 Est GFR (Non-Af Amer) > 60 08/25/17 08:06 POC Glucose (mg/dL) 151 mg/dL (65-110) H 08/26/17 11:13 Random Glucose 114 mg/dL (75-110) H 08/25/17 08:06 Calcium 10.3 mg/dl (8.6-10.4) 08/25/17 08:06 Total Bilirubin 1.0 mg/dL (0.2-1.3) 08/25/17 08:06 AST 28 U/L (17-59) 08/25/17 08:06 ALT 35 U/L (21-72) 08/25/17 08:06 Alkaline Phosphatase 53 U/L (38-126) 08/25/17 08:06 Ammonia 40 umol/L (9-33) H 08/25/17 11:24 Total Creatine Kinase 70 U/L (55-170) 08/23/17 08:44 CK-MB (Mass) 1.82 ng/mL (0.0-3.38) 08/23/17 08:44 Troponin I 0.1130 ng/mL (0.00-0.120) 08/23/17 08:44 Total Protein 7.2 g/dL (6.3-8.3) 08/25/17 08:06 Albumin 3.8 g/dL (3.5-5.0) 08/25/17 08:06 Globulin 3.4 gm/dL (2.2-3.9) 08/25/17 08:06 Albumin/Globulin Ratio 1.1 (1.0-2.1) 08/25/17 08:06 Amylase 114 U/L (30-110) H 08/23/17 07:00 Lipase 326 U/L (23-300) H 08/23/17 07:00 TSH 3rd Generation 1.42 mIU/L (0.46-4.68) 08/25/17 21:08 Valproic Acid 46.1 ug/mL (50.0-100.0) L 08/25/17 11:24 - Hospital Course Hospital Course: a/p 57 y/o male with pmHx of seizures , CVA admitted with seizure at home on monitor noted bradycardia 48-[address] Alvarez consulted DR. Garcia seen patient today and recommends to continue eliquis 5 mg po bid and f/u out patient in his office in 1-2 weeks D/W Dr. Andrews, cleared for discharge from neurology stand point and continue keppra 1500 mg po bid and depokote 1,000 mg bid and f/u with his office in 1 week cleared for discharge from medical standpoint to home today and f/u withme in office in 1 week Discharge plan discussed with patient and via bioinformatician , who understands and agrees with plan Discharge Exam - Head Exam Head Exam: ATRAUMATIC Discharge Plan - Discharge Medications Prescriptions: Valproic Acid Cap [Depakene Cap] 1,000 mg PO BID 30 Days sgl Apixaban [Eliquis] 5 mg PO BID #60 tab levETIRAcetam [Keppra] 1,500 mg PO Q12 30 Days tab - Follow Up Plan Condition: STABLE Disposition: HOME/ ROUTINE Instructions: Heart Healthy Diet, Seizures, Adult (DC), Chest Pain (DC), Apixaban, Levetiracetam, Valproic Acid and Derivatives Additional Instructions: Please follow up with Dr. Moody office in 1 week Please follow up with Dr. Andrews office in 1 weeks , call and make appointment ( f/u visit and meds adjustment) Please follow up with Dr. Kaye/Dr. Schmidt (Cardio) office in 2 weeks -(f/u visit for bradycardia ) continue medication as per Med. rec. Referrals: Tashi Huffman MD [Staff Provider] - Clem Andrews MD [Staff Provider] - () Durga Moody MD [Staff Provider] - 09/02/17 3:00 pm (Appointment made for you , spoke with Pham.)
--- NOTE | 2017-08-28 10:32 | EEG ---
DATE: 08/25/2017 This is a 16 channel electroencephalogram of awake and drowsy adult. During the study, photic stimulation was performed. Hyperventilation was not performed. The resting electroencephalogram consists of 30 to 40 Hz high theta activities noted at parietal and occipital leads. On eye opening, symmetrically attenuated background rhythm. Some persistent movement artifact contaminated the background rhythm. Left cerebral leads show persistent movement artifact as well as loose electrode artifact noted. There is some paroxysmal high polyphasic sharp wave activities noted intermittently. Paroxysmal left cerebral cortical leads noted intermittently as well. There is a phase reversal activity noted at the left P3 leads. The photic stimulation did not evoke driving response noted at 2 to 20 Hz. IMPRESSION: This is an abnormal electroencephalogram because of persistent slowing superimposed with high polyphasic activities consistent with epileptiform focus. Please correlate the findings with the neurological and radiological studies. Clem Andrews MD
== END 2017-08-26 16:34 | disposition home or self-care (01) | DRG 890 ==
LOC: C.ER 21:36 → C.9E 23:41 → OBSVTOIN 23:41 → C.6T 08-23
PROVIDERS: ADMIT Internal Medicine; ATTEND Internal Medicine
DX: R56.9 Unspecified convulsions (principal); G47.33 Obstructive sleep apnea (adult) (pediatric); I10 Essential (primary) hypertension; E78.5 Hyperlipidemia, unspecified; E11.9 Type 2 diabetes mellitus without complications; I48.91 Unspecified atrial fibrillation; J45.909 Unspecified asthma, uncomplicated; Z79.01 Long term (current) use of anticoagulants; Z87.891 Personal history of nicotine dependence; Z91.14 Patient's other noncompliance with medication regimen; I69.354 Hemiplegia and hemiparesis following cerebral infarction affecting left non-dominant side; I69.398 Other sequelae of cerebral infarction; G93.89 Other specified disorders of brain

== ENCOUNTER 2017-09-16 15:34 | Observation (INO) | payer MEDICAID ==
[2017-09-16 15:34] VITALS: PULSE 120; BMI 27.0
[2017-09-16] MEDS ORDERED: Sodium Chloride 0.9% 1,000 ML IV ONE (16:11)
--- NOTE | 2017-09-16 16:16 | C.PDOC ---
History Of Present Illness [place] 57 year old male with history of seizures, and old CVA presents to ED from home via ambulance for evaluation of seizure lasting few minutes. Patient states he started feeling confused and like he was going to pass out and witnessed seizure. Patient states he has been compliant with medications and denies any fever, pain or other complaints. Patient is wearing holter monitor to evaluated for Afib. Neuro: residual left hemiplegia , contracture left hand Time Seen by Provider: 09/16/17 16:00 Chief Complaint (Nursing): Seizure History Per: Patient History/Exam Limitations: no limitations Severity: Moderate Past Medical History Reviewed: Historical Data, Nursing Documentation, Vital Signs Vital Signs: Last Vital Signs Temp Pulse 63 09/16/17 15:51 Resp 19 09/16/17 15:51 BP 138/78 09/16/17 15:51 Pulse Ox 95 09/16/17 17:38 - Medical History PMH: Asthma, CVA, Diabetes, HTN, Hypercholesterolemia, Seizures - [facility] Procedures GAIT TRAINING/AMBULAT TREATMENT USING ASSIST EQUIPMENT (11/16/15) INTRODUCTION OF SERUM/TOX/VACCINE INTO MUSCLE, PERC APPROACH (11/16/15) THERAPEUTIC EXERCISE TREATMENT OF MUSCULOSK LOW BACK/LE (11/16/15) THERAPEUTIC EXERCISE TREATMENT OF MUSCULOSK UP BACK/UE (11/16/15) Family History: States: No Known Family Hx - Social History Hx Tobacco Use: No Hx Alcohol Use: No Hx Substance Use: No - Immunization History Hx Tetanus Toxoid Vaccination: Yes (>5yrs) Hx Influenza Vaccination: No Hx Pneumococcal Vaccination: No Review Of Systems Except As Marked, All Systems Reviewed And Found Negative. Constitutional: Negative for: Fever, Chills Neurological: Positive for: Seizures Physical Exam - Physical Exam Appears: Non-toxic, No Acute Distress, Other (overweight) Skin: Normal Color, Warm, Dry Head: Atraumatic, Normacephalic Eye(s): bilateral: Normal Inspection, EOMI Nose: Normal Oral Mucosa: Moist Tongue: Normal Appearing, No Bite Neck: Normal ROM, Supple Chest: Symmetrical Cardiovascular: Rhythm Regular, No Murmur Respiratory: Normal Breath Sounds, No Rales, No Rhonchi, No Wheezing Gastrointestinal/Abdominal: Normal Exam, Soft, No Tenderness Extremity: Normal ROM, No Tenderness, No Deformity Neurological/Psych: Oriented x3, Normal Speech, Other (residual left hemiplegia , contracture-left hand) ED Course And Treatment - Laboratory Results Result Diagrams: 09/16/17 16:13 09/16/17 16:13 Lab Interpretation: No Acute Changes ECG: Interpreted By Me, Viewed By Me ECG Rhythm: Sinus Rhythm ECG Interpretation: No Acute Changes Rate From EC O2 Sat by Pulse Oximetry: 95 (room air) Pulse Ox Interpretation: Normal Medical Decision Making Medical Decision Making: Impression: Seizure Prior records reviewed: Patient recently admitted admitted 08/22 and discharged for seizures and during hospitalization was evaluated for bradycardia 48-[address] Alvarez consulted. DR. Garcia recommends eliquis [address] Andrews stated to continue keppra 1500 mg po bid and depokote 1,000 mg bid and f/u outpatient Plan: * EKG * Labs * IV NS * Ativan Patient remained stable during ED evaluation. Given patient's history will call medical doctor for obs admission Contact Dr Moody to discuss case and agrees with observation of patient and will place orders Disposition - Disposition Disposition: HOSPITALIZED Disposition Time: 16:55 Condition: STABLE - POA Present On Arrival: None - Clinical Impression Clinical Impression: Seizure disorder - PA / HUMAN RESOURCES CONSULTANT / Resident Statement MD/DO has reviewed & agrees with the documentation as recorded. - Scribe Statement The provider has reviewed the documentation as recorded by the Scribe Yordy Perez Provider Attestation All medical record entries made by the Scribe were at my direction and personally dictated by me. I have reviewed the chart and agree that the record accurately reflects my personal performance of the history, physical exam, medical decision making, and the department course for this patient. I have also personally directed, reviewed, and agree with the discharge instructions and disposition. Decision To Admit - Pt Status Changed To: Hospital Disposition Of: Observation - . Bed Request Type: Telemetry Admitting Physician: Durga Moody Patient Diagnosis: Seizure disorder
[2017-09-16 16:19] LABS: BASO # 0.1 K/uL (0.0-0.2); BASO % 1.1 % (0.0-2.0); EOS # 0.8 K/uL (0.0-0.7); EOS % 10.2 % (0.0-4.0); HEMOGLOBIN 15.5 g/dL (12.0-18.0); LYMPH # 3.1 K/uL (1.0-4.3); LYMPH % 40.6 % (20.0-40.0); MEAN CELL VOLUME 86.7 fL (80.0-94.0); MEAN CORPUSCULAR HEMOGLOBIN 29.2 pg (27.0-31.0); MEAN CORPUSCULAR HGB CONC 33.7 g/dL (33.0-37.0); MEAN PLATELET VOLUME 10.5 fL (7.2-11.7); NEUT # 2.7 K/uL (1.8-7.0); NEUT % 35.1 % (50.0-75.0); RBC 5.3 Mil/uL (4.40-5.90); WHITE BLOOD COUNT 7.8 K/uL (4.8-10.8)
[2017-09-16] MEDS ORDERED: Sodium Chloride 0.9% 1,000 ML ONE (16:22)
[2017-09-16 16:36] LABS: ALB/GLOB RATIO 1.1 (1.0-2.1); ALT/SGPT 23 U/L (21-72); AST/SGOT 29 U/L (17-59); BLOOD UREA NITROGEN 10 mg/dL (9-20); CALCIUM 10.4 mg/dl (8.6-10.4); GFR AFRICAN-AMERICAN > 60; GFR NON-AFRICAN AMERICAN > 60
[2017-09-16 16:56] LABS: URINE BILIRUBIN NEGATIVE (NEGATIVE); URINE BLOOD NEGATIVE (NEGATIVE); URINE CLARITY Clear (Clear); URINE COLOR Yellow (YELLOW); URINE GLUCOSE (UA) 2+ mg/dL (Normal); URINE LEUKOCYTE ESTERASE NEG Leu/uL (Negative); URINE PROTEIN NEGATIVE (NEGATIVE); URINE UROBILINOGEN NORMAL mg/dL (0.2-1.0)
[2017-09-16 17:35] LABS: BARBITURATES, UR NEGATIVE (NEGATIVE); BENZODIAZEPINES, UR NEGATIVE (NEGATIVE); PHENCYCLIDINE, UR NEGATIVE (NEGATIVE)
[2017-09-16 17:38] LABS: OPIATES, UR NEGATIVE (NEGATIVE)
[2017-09-16] MEDS: (Novolog) Insulin Aspart, Recombinant 100 u/ml 10 ml vial SC SCH (22:59)
[2017-09-17] MEDS: (Novolog) Insulin Aspart, Recombinant 100 u/ml 10 ml vial SC SCH ×2 (07:45→12:33)
[2017-09-17] MEDS ORDERED: Multiple Vitamins Tab PO SCH (10:00)
[2017-09-17] MEDS ORDERED: Ergocalciferol 50,000 Intl Units Cap PO SCH (10:00)
[2017-09-17] MEDS ORDERED: Vitamin B Complex/Vitamin C Tab PO SCH (10:00)
--- NOTE | 2017-09-17 12:54 | CARD ---
APPROVED REPORT EKG Measurement Heart [id number] <Conclusion> Normal sinus rhythm Nonspecific T wave abnormality Abnormal ECG
--- NOTE | 2017-09-17 15:36 | CP.PCM.PN ---
Subjective - Date & Time of Evaluation Date of Evaluation: 09/17/17 Time of Evaluation: 14:00 - Subjective Subjective: Patient seen today, denies any dizziness, head ache, blurred vision, wants to go home no seizure activity reported since admission Objective - Vital Signs/Intake and Output Vital Signs (last 24 hours): Temp Pulse Resp BP Pulse Ox 98.2 F 63 20 144/90 95 09/17/17 07:00 09/17/17 12:00 09/17/17 07:00 09/17/17 07:00 09/17/17 07:00 Intake and Output: 09/17/17 09/17/17 06:59 18:59 Intake Total 300 Output Total 350 Balance -350 300 - Medications Medications: Current Medications Amlodipine Besylate (Norvasc) 10 mg PO DAILY [facility] Last Admin: 09/17/17 09:22 Dose: 10 mg Apixaban (Eliquis) 5 mg PO BID [facility] Last Admin: 09/17/17 09:22 Dose: 5 mg Aspirin (Ecotrin) 81 mg PO DAILY [facility] Last Admin: 09/17/17 09:22 Dose: 81 mg Clonazepam (Klonopin) 0.5 mg PO HS [facility] Ergocalciferol (Drisdol 50,000 Intl Units Cap) 1 cap PO QWK [facility] Last Admin: 09/17/17 09:22 Dose: 1 cap Insulin Aspart (Novolog) 0 unit SC ACHS [facility] PRN Reason: Protocol Last Admin: 09/17/17 12:33 Dose: Not Given Levetiracetam (Keppra) 1,500 mg PO Q12H [facility] Last Admin: 09/17/17 07:00 Dose: 1,500 mg Losartan Potassium (Cozaar) 100 mg PO DAILY [facility] Last Admin: 09/17/17 09:22 Dose: 100 mg Multivitamins (Hexavitamin) 1 tab PO DAILY [facility] Last Admin: 09/17/17 09:22 Dose: 1 tab Rosuvastatin Calcium (Crestor) 10 mg PO HS [facility] Last Admin: 09/16/17 21:55 Dose: 10 mg Valproate Sodium (Depakene Cap) 1,000 mg PO BID [facility] Last Admin: 09/17/17 09:22 Dose: 1,000 mg Vitamin B Complex/Vitamin C (Berocca) 1 tab PO DAILY [facility] Last Admin: 09/17/17 09:22 Dose: 1 tab - Labs Labs: 09/16/17 16:13 09/16/17 16:13 Assessment and Plan - Assessment and Plan (Free Text) Assessment: A/P 57 yr old male with pmhx of CVA, Diabetes, HTN, Hypercholesterolemia, Seizures admitted with seizure at home no seizure activity noted since admission HR- stable - 60,s - pt has holter monitor D/W Dr. Moody, cleared for discharge home today and f/u with Dr. Andrews office tomorrow discharge plan discussed with patient who understands and agrees with plan
[2017-09-17 16:16] VITALS: BP 148/86; PULSE 85; RESP 18; TEMP 97.7; O2SAT 97
--- NOTE | 2017-09-17 22:29 | CP.PCM.DIS ---
Provider - Provider Date of Admission: 09/16/17 16:58 Attending physician: Durga Moody MD Hospital Course - Lab Results Lab Results: Most Recent Lab Values WBC 7.8 K/uL (4.8-10.8) 09/16/17 16:13 RBC 5.30 Mil/uL (4.40-5.90) 09/16/17 16:13 Hgb 15.5 g/dL (12.0-18.0) 09/16/17 16:13 Hct 46.0 % (35.0-51.0) 09/16/17 16:13 MCV 86.7 fL (80.0-94.0) 09/16/17 16:13 MCH 29.2 pg (27.0-31.0) 09/16/17 16:13 MCHC 33.7 g/dL (33.0-37.0) 09/16/17 16:13 RDW 15.0 % (11.5-14.5) H 09/16/17 16:13 Plt Count 138 K/uL (130-400) 09/16/17 16:13 MPV 10.5 fL (7.2-11.7) 09/16/17 16:13 Neut % (Auto) 35.1 % (50.0-75.0) L 09/16/17 16:13 Lymph % (Auto) 40.6 % (20.0-40.0) H 09/16/17 16:13 Elk % (Auto) 13.0 % (0.0-10.0) H 09/16/17 16:13 Eos % (Auto) 10.2 % (0.0-4.0) H 09/16/17 16:13 Baso % (Auto) 1.1 % (0.0-2.0) 09/16/17 16:13 Neut # (Auto) 2.7 K/uL (1.8-7.0) 09/16/17 16:13 Lymph # (Auto) 3.1 K/uL (1.0-4.3) 09/16/17 16:13 Elk # (Auto) 1.0 K/uL (0.0-0.8) H 09/16/17 16:13 Eos # (Auto) 0.8 K/uL (0.0-0.7) H 09/16/17 16:13 Baso # (Auto) 0.1 K/uL (0.0-0.2) 09/16/17 16:13 Sodium 146 mmol/L (132-148) 09/16/17 16:13 Potassium 4.0 mmol/L (3.6-5.2) 09/16/17 16:13 Chloride 106 mmol/L (98-107) 09/16/17 16:13 Carbon Dioxide 26 mmol/L (22-30) 09/16/17 16:13 Anion Gap 17 (10-20) 09/16/17 16:13 BUN 10 mg/dL (9-20) 09/16/17 16:13 Creatinine 0.8 mg/dL (0.8-1.5) 09/16/17 16:13 Est GFR ( Amer) > 60 09/16/17 16:13 Est GFR (Non-Af Amer) > 60 09/16/17 16:13 POC Glucose (mg/dL) 173 mg/dL (65-110) H 09/17/17 11:19 Random Glucose 195 mg/dL (75-110) H 09/16/17 16:13 Calcium 10.4 mg/dl (8.6-10.4) 09/16/17 16:13 Total Bilirubin 0.4 mg/dL (0.2-1.3) 09/16/17 16:13 AST 29 U/L (17-59) 09/16/17 16:13 ALT 23 U/L (21-72) 09/16/17 16:13 Alkaline Phosphatase 48 U/L (38-126) 09/16/17 16:13 Total Protein 7.6 g/dL (6.3-8.3) 09/16/17 16:13 Albumin 4.0 g/dL (3.5-5.0) 09/16/17 16:13 Globulin 3.6 gm/dL (2.2-3.9) 09/16/17 16:13 Albumin/Globulin Ratio 1.1 (1.0-2.1) 09/16/17 16:13 Urine Color Yellow (YELLOW) 09/16/17 16:51 Urine Clarity Clear (Clear) 09/16/17 16:51 Urine pH 8.0 (5.0-8.0) 09/16/17 16:51 Ur Specific [place] 1.005 (1.003-1.030) 09/16/17 16:51 Urine Protein Negative mg/dL (NEGATIVE) 09/16/17 16:51 Urine Glucose (UA) 2+ mg/dL (Normal) H 09/16/17 16:51 Urine Ketones Negative mg/dL (NEGATIVE) 09/16/17 16:51 Urine Blood Negative (NEGATIVE) 09/16/17 16:51 Urine Nitrate Negative (NEGATIVE) 09/16/17 16:51 Urine Bilirubin Negative (NEGATIVE) 09/16/17 16:51 Urine Urobilinogen Normal mg/dL (0.2-1.0) 09/16/17 16:51 Ur Leukocyte Esterase Neg Prasad/uL (Negative) 09/16/17 16:51 Urine WBC (Auto) < 1 /hpf (0-5) 09/16/17 16:51 Urine Opiates Screen Negative (NEGATIVE) 09/16/17 16:51 Urine Methadone Screen Negative (NEGATIVE) 09/16/17 16:51 Ur Barbiturates Screen Negative (NEGATIVE) 09/16/17 16:51 Valproic Acid 76.6 ug/mL (50.0-100.0) 09/16/17 16:13 Ur Phencyclidine Scrn Negative (NEGATIVE) 09/16/17 16:51 Ur Amphetamines Screen Negative (NEGATIVE) 09/16/17 16:51 U Benzodiazepines Scrn Negative (NEGATIVE) 09/16/17 16:51 U Oth Cocaine Metabols Negative (NEGATIVE) 09/16/17 16:51 U Cannabinoids Screen Negative (NEGATIVE) 09/16/17 16:51 - Hospital Course Hospital Course: A/P 57 yr old male with pmhx of CVA, Diabetes, HTN, Hypercholesterolemia, Seizures admitted with seizure at home no seizure activity noted since admission HR- stable - 60,s - pt has holter monitor Pt cleared for discharge home today and f/u with Dr. Andrews office tomorrow discharge plan discussed with patient who understands and agrees with plan Discharge Plan - Follow Up Plan Condition: STABLE Disposition: HOME/ ROUTINE Instructions: Heart Healthy Diet, Seizures, Adult (DC), Bradycardia (DC) Additional Instructions: Please follow up with Dr. Moody office in 1 week Please follow up with Dr. Andrews office today or tomorrow Please follow up with Dr. Alvarez office Continue medication as per Med. rec. Referrals: Clem Andrews MD [Staff Provider] - Durga Moody MD [Staff Provider] - 09/24/17 1:30 pm (Appointment made for you , spoke with Irlanda)
--- NOTE | 2017-09-17 22:30 | CP.PCM.HP ---
History of Present Illness - History of Present Illness History of Present Illness: Braun 57 year old male with history of seizures, and old CVA presents to ED from home via ambulance for evaluation of seizure lasting few minutes. Patient states he started feeling confused and like he was going to pass out and witnessed seizure. Patient states he has been compliant with medications and denies any fever, pain or other complaints. Patient is wearing holter monitor to evaluated for Afib. Past Patient History - Infectious Disease Hx of Infectious Diseases: None - Tetanus Immunizations Tetanus Immunization: Unknown - Past Medical History & Family History Past Medical History?: Yes - Past Social History Smoking Status: Former Smoker - CARDIAC Hx Hypercholesterolemia: Yes Hx Hypertension: Yes - PULMONARY Hx Asthma: Yes - NEUROLOGICAL Hx Seizures: Yes - HEENT Hx HEENT Problems: No Hx Blind: No Hx Cataracts: No Hx Deafness: No Hx Difficulty Chewing: No Hx Epistaxis: No Hx Glaucoma: No Hx Macular Degeneration: No - RENAL Hx Chronic Kidney Disease: No Hx Kidney Stones: No - ENDOCRINE/METABOLIC Hx Diabetes Mellitus Type 2: Yes - HEMATOLOGICAL/ONCOLOGICAL Hx Anemia: No Hx Human Immunodeficiency Virus (HIV): No Hx Sickle Cell Disease: No - INTEGUMENTARY Hx Dermatological Problems: No Hx Basil Cell: No Hx Byers: No Hx Cellulitis: No Hx Eczema: No Hx Melanoma: No Hx Psoriasis: No Hx Squamous Cell: No - MUSCULOSKELETAL/RHEUMATOLOGICAL Hx Arthritis: No Hx Fractures: No Hx Osteoporosis: No Hx Rheumatoid Arthritis: No - GASTROINTESTINAL Hx Crohn's Disease: No Hx Diverticulitis: No Hx Gall Bladder Disease: No Hx Gastritis: No Hx Pancreatitis: No - GENITOURINARY/GYNECOLOGICAL Hx Sexually Transmitted Disorders: No - PSYCHIATRIC Hx Substance Use: No - SURGICAL HISTORY Hx Appendectomy: No Hx Carotid Endarterectomy: No Hx Cholecystectomy: No Hx Coronary Artery Bypass Graft: No Hx Coronary Stent: No Hx Tonsillectomy: No - ANESTHESIA Hx Anesthesia: Yes Hx Anesthesia Reactions: No Meds Allergies/Adverse Reactions: Allergies Allergy/AdvReac Type Severity Reaction Status Date / Time No Known Allergies Allergy Verified 09/16/17 15:49 Results - Vital Signs Recent Vital Signs: Last Vital Signs Temp 97.7 F 09/17/17 15:55 Pulse 85 09/17/17 15:55 Resp 18 09/17/17 15:55 BP 148/86 09/17/17 15:55 Pulse Ox 97 09/17/17 15:55 - Labs Result Diagrams: 09/16/17 16:13 09/16/17 16:13 Labs: Laboratory Results - last 24 hr 09/17/17 09/17/17 06:15 11:19 POC Glucose (mg/dL) 97 173 H Assessment & Plan (1) Seizures Status: Acute (2) CVA (cerebral vascular accident) Status: Chronic
== END 2017-09-17 16:58 | disposition home or self-care (01) ==
LOC: C.ER 15:34 → C.9E 16:58 → C.6T 18:02
PROVIDERS: ADMIT Internal Medicine; ATTEND Internal Medicine
DX: G40.909 Epilepsy, unspecified, not intractable, without status epilepticus (principal); E11.9 Type 2 diabetes mellitus without complications; I10 Essential (primary) hypertension; J45.909 Unspecified asthma, uncomplicated; Z79.01 Long term (current) use of anticoagulants; Z86.73 Personal history of transient ischemic attack (TIA), and cerebral infarction without residual deficits; Z87.891 Personal history of nicotine dependence
CPT/HCPCS: 80053; 80164; 80324; 80345; 80346; 80349; 80353; 80358; 80361; 81001; 82948; 83992; 85025; 93005; 96360; 96374; 97116; 97162; 99285; G0378; G8978; G8979; J2060; J7040

== ENCOUNTER 2018-07-29 15:11 | Inpatient (IN) | payer MEDICARE, MEDICAID ==
[2018-07-29 15:11] VITALS: PULSE 120; BMI 27.0
[2018-07-29] MEDS ORDERED: Sodium Chloride 0.9% 1,000 ML IV ONE ×2 (15:34→15:35)
[2018-07-29] MEDS ORDERED: Piperacillin/Tazobact 3.375 GM in Sodium Chloride 100 ML IVPB STA (15:43)
--- NOTE | 2018-07-29 15:43 | C.PDOC ---
History Of Present Illness 58 year old male presents to ED with complaint of fever, weakness, and chills for the past 2 days. Patient went to see his PMD , Dr. Chasidy Moody, and was told to take Tylenol. Patient is also currently taking Amoxicillan. Patient states that his symptoms are worse today. He has a PMHx of hypertension, diabetes, seizure disorder, and CVA. He denies diaphoresis, headache, runny nose, nasal congestion, cough, nausea, vomiting, and diarrhea. Time Seen by Provider: 07/29/18 15:21 Chief Complaint (Nursing): Fever History Per: Patient History/Exam Limitations: no limitations Onset/Duration Of Symptoms: Days (2) Current Symptoms Are (Timing): Still Present Associated Symptoms: Fever, Chills, Other (weakness). denies: Sore Throat, Cough, Sputum, Sinus Drainage, Nasal Congestion, Nausea, Vomiting, Diarrhea Past Medical History Reviewed: Historical Data, Nursing Documentation, Vital Signs Vital Signs: Last Vital Signs Temp 102.9 F H 07/29/18 15:13 Pulse 134 H 07/29/18 15:13 Resp 20 07/29/18 15:13 BP 151/78 H 07/29/18 15:13 Pulse Ox 94 L 07/29/18 15:13 - Medical History PMH: Asthma, Atrial Fibrillation, Cardia Arrhythmia, CVA, Diabetes, HTN, Hypercholesterolemia, Seizures Denies: Bipolar Disorder, Bronchitis - [facility] Procedures GAIT TRAINING/AMBULAT TREATMENT USING ASSIST EQUIPMENT (11/16/15) INTRODUCTION OF SERUM/TOX/VACCINE INTO MUSCLE, PERC APPROACH (11/16/15) THERAPEUTIC EXERCISE TREATMENT OF MUSCULOSK LOW BACK/LE (11/16/15) THERAPEUTIC EXERCISE TREATMENT OF MUSCULOSK UP BACK/UE (11/16/15) Family History: States: Unknown Family Hx - Social History Hx Tobacco Use: No Hx Alcohol Use: No Hx Substance Use: No - Immunization History Hx Tetanus Toxoid Vaccination: Yes (>5yrs) Hx Influenza Vaccination: No Hx Pneumococcal Vaccination: No Review Of Systems Constitutional: Positive for: Fever, Chills, Weakness. Negative for: Sweats ENT: Negative for: Throat Pain Respiratory: Positive for: Cough, Shortness of Breath Gastrointestinal: Negative for: Nausea, Vomiting Neurological: Negative for: Weakness, Numbness, Headache, Dizziness Physical Exam - Physical Exam Appears: Non-toxic, Other (weak, barely able to sit up ) Skin: Normal Color, Warm, Dry Head: Atraumatic, Normacephalic Oral Mucosa: Moist Throat: Normal, No Erythema, No Exudate Neck: Normal ROM, Supple Chest: Symmetrical, No Deformity Cardiovascular: Rhythm Regular, No Murmur, Other (tachycardic) Respiratory: No Accessory Muscle Use, No Rales, No Rhonchi, No Wheezing Gastrointestinal/Abdominal: Soft, No Tenderness Extremity: Capillary Refill (<2 seconds) Extremity: Bilateral: Atraumatic, Normal Color And Temperature, Normal ROM Neurological/Psych: Oriented x3, Normal Speech, Normal Cognition Gait: Unable To Assess ED Course And Treatment - Laboratory Results Result Diagrams: 07/29/18 16:33 07/29/18 16:33 Lab Interpretation: No Acute Changes ECG: Interpreted By Me ECG Rhythm: Atrial Fibrillation ECG Interpretation: No Acute Changes Rate From EC O2 Sat by Pulse Oximetry: 94 (in RA) Pulse Ox Interpretation: Normal - Radiology CXR: Viewed By Me (FINDINGS:), Read By Radiologist Progress Note: Treated with IVF NSS x 2 L. Duoneb x 2, zosyn and tylenol. Treated with toradol IV. Treated with cardizem 20 mg IV and cardizem drip @ 5 mg/hr Reassessment Condition: Improved - Physician Consult Information Physician Contacted: Durga Moody Outcome Of Conversation: admit Medical Decision Making Medical Decision Making: Impression: 58 year old male with fever, chills, and weakness Plan: VBG EKG CXR Labs with CBC and blood culture Duoneb IH IV fluids Tylenol PO Zosyn IVPB Disposition Discussed With : Durga Moody Doctor Will See Patient In The: Hospital - Disposition Disposition: HOSPITALIZED Disposition Time: 18:15 Condition: IMPROVED - POA Present On Arrival: None - Clinical Impression Clinical Impression: Fever, Atrial fibrillation with RVR, Pneumonia - PA / CARPENTRY INSTRUCTOR / Resident Statement MD/DO has reviewed & agrees with the documentation as recorded. (Bernice Saini) - Scribe Statement The provider has reviewed the documentation as recorded by the Scribe (Bernice Saini) All medical record entries made by the Scribe were at my direction and personally dictated by me. I have reviewed the chart and agree that the record accurately reflects my personal performance of the history, physical exam, medical decision making, and the department course for this patient. I have also personally directed, reviewed, and agree with the discharge instructions and disposition. Decision To Admit - Pt Status Changed To: Hospital Disposition Of: Inpatient - Admit Certification Admit to Inpatient:: After my assessment, the patient will require hospitalization for at least two midnights. This is because of the severity of symptoms shown, intensity of services needed, and/or the medical risk in this patient being treated as an outpatient. - InPatient: Physician Admission Certification:: pneumonia. A-Fib - . Bed Request Type: Telemetry Admitting Physician: Durga Moody Patient Diagnosis: Fever, Atrial fibrillation with RVR, Pneumonia
[2018-07-29] MEDS ORDERED: Piperacillin/Tazobact 3.375 gm 100 ML IVPB ONE (16:10)
[2018-07-29] MEDS ORDERED: Albuterol-Ipratrop 3 mg / 0.5 (3 ml) UD ONE (16:17)
[2018-07-29] MEDS: Albuterol-Ipratrop 3 mg / 0.5 (3 ml) UD IH SCH (16:29)
[2018-07-29 16:32] LABS: VENOUS BLOOD GAS BASE EXCESS -1.4 mmol/L (0.0-2.0); VENOUS BLOOD GAS PCO2 36 mmHg (40-60); VENOUS BLOOD GAS PO2 29 mm/Hg (30-55); VENOUS BLOOD PH 7.41 (7.32-7.43)
[2018-07-29 16:40] LABS: BASO # 0.1 K/uL (0.0-0.2); EOS % 0.3 % (0.0-4.0); HEMOGLOBIN 17.2 g/dL (12.0-18.0); LYMPH # 0.9 K/uL (1.0-4.3); LYMPH % 12.6 % (20.0-40.0); MEAN CORPUSCULAR HEMOGLOBIN 28.6 pg (27.0-31.0); MEAN CORPUSCULAR HGB CONC 32.1 g/dL (33.0-37.0); MEAN PLATELET VOLUME 10.8 fL (7.2-11.7); MONO % 14.4 % (0.0-10.0); NEUT % 71.7 % (50.0-75.0); RBC 6.02 Mil/uL (4.40-5.90); RED CELL DISTRIBUTION WIDTH 15.2 % (11.5-14.5); WHITE BLOOD COUNT 6.9 K/uL (4.8-10.8)
[2018-07-29 16:56] LABS: ALB/GLOB RATIO 1.2 (1.0-2.1); ALBUMIN 4.3 g/dL (3.5-5.0); ALT/SGPT 18 U/L (21-72); AST/SGOT 42 U/L (17-59); BLOOD UREA NITROGEN 15 mg/dL (9-20); CALCIUM 11.1 mg/dl (8.6-10.4); GFR NON-AFRICAN AMERICAN > 60
--- NOTE | 2018-07-29 17:32 | RAD ---
HISTORY: SOB COMPARISON: Chest x-ray performed 08/22/17 TECHNIQUE: Chest, one view. FINDINGS: LUNGS: Consolidation in the right upper lobe appears consistent with pneumonia. Mild venous congestion. PLEURA: No significant pleural effusion identified. No definite pneumothorax . CARDIOVASCULAR: Heart size appears top normal. OSSEOUS STRUCTURES: No acute osseous abnormality identified. VISUALIZED UPPER ABDOMEN: Unremarkable. OTHER FINDINGS: None. IMPRESSION: Right upper lobe consolidation appears consistent with pneumonia. Correlate clinically. Mild venous congestion.
[2018-07-29] MEDS ORDERED: Sodium Chloride 0.9% 1,000 ML IV SCH ×2 (18:45→21:45)
[2018-07-29] MEDS: Azithromycin 500 MG in Sodium Chloride 0.9% 250 ML IVPB SCH (19:35)
[2018-07-29] MEDS: BRIVIACT 100 MG PO SCH (21:40)
[2018-07-29] MEDS: guaiFENesin 200 mg/10 ml Syrup UD PO SCH (21:40)
[2018-07-29 22:50] LABS: SQUAMOUS EPITHIAL < 1 /hpf (0-5); URINE BACTERIA OCC (<OCC); URINE BILIRUBIN NEGATIVE (NEGATIVE); URINE BLOOD NEGATIVE (NEGATIVE); URINE CLARITY Hazy (Clear); URINE COLOR Amber (YELLOW); URINE GLUCOSE (UA) 1+ mg/dL (Normal); URINE LEUKOCYTE ESTERASE NEG Leu/uL (Negative); URINE PROTEIN 1+ mg/dL (NEGATIVE); URINE UROBILINOGEN NORMAL mg/dL (0.2-1.0)
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
[2018-07-30 07:28] LABS: MEAN CELL VOLUME 88.2 fL (80.0-94.0); MEAN CORPUSCULAR HEMOGLOBIN 28.5 pg (27.0-31.0); MEAN CORPUSCULAR HGB CONC 32.3 g/dL (33.0-37.0); MEAN PLATELET VOLUME 10.3 fL (7.2-11.7); RBC 5.21 Mil/uL (4.40-5.90); RED CELL DISTRIBUTION WIDTH 15.1 % (11.5-14.5); WHITE BLOOD COUNT 5.9 K/uL (4.8-10.8)
[2018-07-30 07:34] LABS: HEMOGLOBIN 14.8 g/dL (12.0-18.0)
[2018-07-30 07:39] LABS: BLOOD UREA NITROGEN 14 mg/dL (9-20); CALCIUM 10.1 mg/dl (8.6-10.4); GFR NON-AFRICAN AMERICAN > 60
--- NOTE | 2018-07-30 08:50 | HP ---
CHIEF COMPLAINT: Fever for two days. HISTORY OF PRESENT ILLNESS: This is a 58-year-old male, well known to me with history of a stroke, hypertension, hyperlipidemia, type 2 diabetes, anxiety, and depression. The patient is compliant with his diet, medications, and followup. Two days ago, he started having fever, chills, rigors, cough, congestion, thick yellow sputum production, nausea. No vomiting. He does not have any diarrhea or abdominal pain. He does not have any pleuritic chest pain. He has chest pain upon coughing, which is dull, and he has runny nose. He has headache. He denies any neck pain. He has frequency of urination. He has chest pain upon coughing. He denies any joint pain or hip pain. According to the patient, fever is high grade and is associated with chills, rigor, and according to the patient, sputum is thick, yellow, and he is unable to bring it up. There is no history of dysuria, hematuria, pyuria. The patient denies any history of joint pain, hip pain. He denies any tingling, numbness, paresthesias. The patient is chronically dependent on his family for his activities of daily living because of stroke. He denies any drinking. No history of substance abuse. There is no history of skin rash, itchy eyes, or itchy nose. ALLERGIES: UNKNOWN ALLERGIES. CURRENT MEDICATION AT HOME: He is on Eliquis, Pravachol, Losartan, aspirin, Norvasc, multivitamin, B12, vitamin, Robitussin, metoprolol succinate, Briviact, Depakene.. SOCIAL HISTORY: Nonsmoker, non-ETOH user. PAST SURGICAL HISTORY: Stroke, hypertension, type 2 diabetes. FAMILY HISTORY: Positive for diabetes and hypertension in the siblings and in the mother. PHYSICAL EXAMINATION: GENERAL: A middle-aged male in distress with coughing, wheezing, chest pain. VITAL SIGNS: Blood pressure 108/59, pulse 120, respiratory rate 20, temperature 102.2. SKIN: No rashes. No bruises. No purpura. No petechiae. No ecchymosis. HEENT: Atraumatic, normocephalic. Negative pallor. Negative jaundice. Extraocular movements are intact. NECK: Supple. No JVD. No lymph node. No thyromegaly. No carotid bruits. CHEST WALL: Bilateral symmetrical expansion. No tenderness. No deformity. LUNGS: Clear. No rales. No rhonchi. CARDIOVASCULAR SYSTEM: PMI no localized. S1 and S2 plus S4 positive. ABDOMEN: Soft, nontender. Bowel sounds are positive. LUNGS: Bilateral expiratory rales and rhonchi. RECTAL: Enlarged prostate. EXTREMITIES: No clubbing, cyanosis, or edema. CENTRAL NERVOUS SYSTEM: Awake, alert, oriented x3. Cranial nerves II through XII are normal. Power 5/5 x4. ASSESSMENT: 1. the patient has left-sided weakness. 2. Right upper lobe pneumonia. 3. Hypertension. 4. Type 2 diabetes. 5. Dehydration. PLAN: Admit. Detailed orders not written, seen and examined. Durga Moody MD
[2018-07-30] MEDS: BRIVIACT 100 MG PO SCH ×2 (09:08→18:27)
[2018-07-30] MEDS: Metoprolol Succinate 50 mg XL Tab PO SCH (09:13)
[2018-07-30] MEDS: guaiFENesin 200 mg/10 ml Syrup UD PO SCH ×4 (09:14→21:41)
[2018-07-30] MEDS: Multiple Vitamins Tab PO SCH (09:14)
--- NOTE | 2018-07-30 10:36 | CARD ---
APPROVED REPORT Date of service: 07/29/2018 EKG Measurement Heart [id number] <Conclusion> Atrial fibrillation with rapid ventricular response Left axis deviation Low voltage QRS Nonspecific T wave abnormality Abnormal ECG
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
[2018-07-30] MEDS: Benzocaine/Menthol (Cepacol) Lozenge MT SCH ×2 (19:42→22:17)
[2018-07-30] MEDS: Azithromycin 500 MG in Sodium Chloride 0.9% 250 ML IVPB SCH (21:00)
[2018-07-30] MEDS ORDERED: Benzocaine/Menthol (Cepacol) Lozenge MT SCH (22:00)
--- NOTE | 2018-07-30 22:11 | CP.PCM.PN ---
Subjective - Date & Time of Evaluation Date of Evaluation: 07/30/18 Time of Evaluation: 07:00 - Subjective Subjective: dictated Objective - Vital Signs/Intake and Output Vital Signs (last 24 hours): Temp Pulse Resp BP Pulse Ox 101 F H 75 20 113/73 96 07/30/18 21:22 07/30/18 15:00 07/30/18 15:00 07/30/18 15:00 07/30/18 15:00 Intake and Output: 07/30/18 07/31/18 18:59 06:59 Intake Total 340 Output Total 200 Balance 140 - Medications Medications: Current Medications Acetaminophen (Tylenol 325mg Tab) 650 mg PO Q4 PRN PRN Reason: Fever >100.4 F Last Admin: 07/30/18 21:22 Dose: 650 mg Apixaban (Eliquis) 5 mg PO BID [facility] Last Admin: 07/30/18 18:03 Dose: 5 mg Aspirin (Ecotrin) 81 mg PO DAILY [facility] Last Admin: 07/30/18 09:14 Dose: 81 mg Benzocaine/Menthol (Cepacol Sore Throat) 1 francisco MT QID [facility] Last Admin: 07/30/18 19:42 Dose: 1 [place] Cyanocobalamin (Vitamin B12 1000 Mcg Tab) 2,000 mcg PO DAILY [facility] Last Admin: 07/30/18 09:08 Dose: 2,000 mcg Diltiazem HCl (Cardizem) 30 mg PO Q6 [facility] Last Admin: 07/30/18 18:06 Dose: Not Given Folic Acid (Folic Acid) 1 mg PO DAILY [facility] Last Admin: 07/30/18 09:14 Dose: 1 mg Guaifenesin (Robitussin) 200 mg PO QID [facility] Last Admin: 07/30/18 21:41 Dose: 200 mg Home Med (Patient's Own Medication) 1 tab PO Q12H [facility] Last Admin: 07/30/18 18:27 Dose: 1 tab Azithromycin 500 mg/ Sodium (Chloride) 250 mls @ 250 mls/hr IVPB Q24H [facility]; Protocol Last Admin: 07/30/18 21:00 Dose: 250 mls/hr Piperacillin Sod/Tazobactam (Sod 3.375 gm/ Sodium Chloride) 100 mls @ 200 mls/hr IVPB Q6H [facility]; Protocol Metoprolol Succinate (Toprol Xl) 50 mg PO DAILY [facility] Last Admin: 07/30/18 09:13 Dose: 50 mg Multivitamins (Hexavitamin) 1 tab PO DAILY [facility] Last Admin: 07/30/18 09:14 Dose: 1 tab Rosuvastatin Calcium (Crestor) 5 mg PO HS [facility] Last Admin: 07/30/18 21:22 Dose: 5 mg Valproate Sodium (Depakene Cap) 1,000 mg PO Q12H [facility] Last Admin: 07/30/18 18:04 Dose: 1,000 mg - Labs Labs: 07/30/18 07:14 07/30/18 07:14
[2018-07-30] MEDS: Piperacillin/Tazobact 3.375 GM in Sodium Chloride 100 ML IVPB SCH (22:49)
--- NOTE | 2018-07-31 01:29 | PN ---
DATE: 07/30/2018 SUBJECTIVE: The patient still has fever of 101. He is coughing. He is wheezing. He is awake, alert and he is dehydrated and he has been hydrated. PHYSICAL EXAMINATION: VITAL SIGNS: Blood pressure 113/73, pulse 75, respiratory rate 20, temperature 101. LUNGS: Bilateral scattered rhonchi. CARDIOVASCULAR: S1 and S2 regular. ABDOMEN: Soft. ASSESSMENT: 1. Pneumonia. 2. Hypertension. 3. Diabetes. PLAN: DC Rocephin and start patient on Zosyn if it persists, we will monitor the patient. Durga Moody MD
[2018-07-31] MEDS: Piperacillin/Tazobact 3.375 GM in Sodium Chloride 100 ML IVPB SCH ×4 (05:23→22:08)
[2018-07-31] MEDS: BRIVIACT 100 MG PO SCH ×4 (05:24→20:31)
[2018-07-31] MEDS: Metoprolol Succinate 50 mg XL Tab PO SCH (09:13)
[2018-07-31] MEDS: Multiple Vitamins Tab PO SCH (09:13)
[2018-07-31] MEDS: guaiFENesin 200 mg/10 ml Syrup UD PO SCH ×4 (09:14→22:09)
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
[2018-07-31] MEDS: Benzocaine/Menthol (Cepacol) Lozenge MT SCH ×4 (09:44→22:08)
--- NOTE | 2018-07-31 10:15 | CT ---
Date of service: 07/30/2018 PROCEDURE: CT Chest without contrast HISTORY: RUL infiltrate COMPARISON: Comparison is made with the previous study dated 08/20/2011 TECHNIQUE: Contiguous axial images were obtained through the chest without intravenous contrast enhancement. Sagittal and coronal reconstructions were performed. Radiation dose: Total exam DLP = 759.77 mGy-cm. This CT exam was performed using one or more of the following dose reduction techniques: Automated exposure control, adjustment of the mA and/or kV according to patient size, and/or use of iterative reconstruction technique. FINDINGS: LUNGS: There is airspace consolidation at the inferior aspect of the right lung upper lobe contains air bronchogram likely represent pneumonia. There are adjacent ground-glass opacities and small nodular opacities in the right upper lobe. [id number] pulmonary vascular congestion is noted. MEDIASTINUM: Unremarkable thoracic aorta. No aneurysm. The heart is mildly enlarged. Main pulmonary artery unremarkable. No vascular congestion. There are mildly enlarged lymph nodes at the mid to upper mediastinum. The possibility of right hilar lymphadenopathy is also not excluded. No aortic atherosclerotic calcification. PLEURA: There is a small right pleural effusion. BONES: No fracture. No destructive lesion. There is bony protrusion posterior right lower ribs likely represent see no stenosis UPPER ABDOMEN: Grossly unremarkable. OTHER FINDINGS: None. IMPRESSION: Moderate to large size airspace consolidation at the inferior and posterior aspect of the right lung upper lobe extending to the region of the right hilum and contains air bronchogram likely represent pneumonia. Adjacent foci of ground-glass opacities and nodular opacities noted. Small right pleural effusion. Mild cardiomegaly. Mildly enlarged right mediastinal lymph nodes. Preliminary report contains concordant findings was submitted by [facility] Radiology.
--- NOTE | 2018-07-31 17:31 | CP.PCM.PN ---
Subjective - Date & Time of Evaluation Date of Evaluation: 07/31/18 Time of Evaluation: 11:00 - Subjective Subjective: Patient seen today, still c/o cough, sob an d PLUMMER , febrile with temp 101- 102 , and afib on monitor - HR above 110, Patient on cardizem drip Objective - Vital Signs/Intake and Output Vital Signs (last 24 hours): Temp Pulse Resp BP Pulse Ox 98.2 F 99 H 24 131/86 94 L 07/31/18 11:13 07/31/18 11:13 07/31/18 11:13 07/31/18 07:00 07/31/18 11:13 - Medications Medications: Current Medications Acetaminophen (Tylenol 325mg Tab) 650 mg PO Q4 PRN PRN Reason: Fever >100.4 F Last Admin: 07/31/18 09:13 Dose: 650 mg Apixaban (Eliquis) 5 mg PO BID [facility] Last Admin: 07/31/18 09:14 Dose: 5 mg Aspirin (Ecotrin) 81 mg PO DAILY [facility] Last Admin: 07/31/18 09:13 Dose: 81 mg Benzocaine/Menthol (Cepacol Sore Throat) 1 franc[place] MT QID [facility] Last Admin: 07/31/18 15:06 Dose: 1 [place] Cyanocobalamin (Vitamin B12 1000 Mcg Tab) 2,000 mcg PO DAILY [facility] Last Admin: 07/31/18 09:13 Dose: 2,000 mcg Diltiazem HCl (Cardizem) 30 mg PO Q6 [facility] Last Admin: 07/31/18 11:10 Dose: 30 mg Folic Acid (Folic Acid) 1 mg PO DAILY [facility] Last Admin: 07/31/18 09:13 Dose: 1 mg Guaifenesin (Robitussin) 200 mg PO QID [facility] Last Admin: 07/31/18 15:06 Dose: 200 mg Home Med (Patient's Own Medication) 1 tab PO Q12H [facility] Last Admin: 07/31/18 08:11 Dose: 1 tab Azithromycin 500 mg/ Sodium (Chloride) 250 mls @ 250 mls/hr IVPB Q24H [facility]; Protocol Last Admin: 07/30/18 21:00 Dose: 250 mls/hr Piperacillin Sod/Tazobactam (Sod 3.375 gm/ Sodium Chloride) 100 mls @ 200 mls/hr IVPB Q6H [facility]; Protocol Last Admin: 07/31/18 09:44 Dose: 200 mls/hr Metoprolol Succinate (Toprol Xl) 50 mg PO DAILY [facility] Last Admin: 07/31/18 09:13 Dose: 50 mg Multivitamins (Hexavitamin) 1 tab PO DAILY [facility] Last Admin: 07/31/18 09:13 Dose: 1 tab Rosuvastatin Calcium (Crestor) 5 mg PO HS [facility] Last Admin: 07/30/18 21:22 Dose: 5 mg Valproate Sodium (Depakene Cap) 1,000 mg PO Q12H [facility] Last Admin: 07/31/18 08:11 Dose: 1,000 mg - Labs Labs: 07/30/18 07:14 07/30/18 07:14 - Constitutional Appears: No Acute Distress, Other (look sick ) - Respiratory Exam Respiratory Exam: Decreased Breath Sounds, Rales, Rhonchi - Cardiovascular Exam Cardiovascular Exam: Irregular Rhythm Assessment and Plan - Assessment and Plan (Free Text) Assessment: A/P 58 yr old male with pmhx of Cardia Arrhythmia, CVA, Diabetes, HTN, Hypercholesterolemia, Seizures admitted with 2 days of fever, cough congestion, sob ,weakness, chills admitted with pneumonia and afib with RVR started on cardizem IV for rate control patient still running temp and symptomatic started on neb, treatment and IV antibiotics with zithromycin , zozyn , blood cultures send and pending result Moderate to large size airspace consolidation at the inferior and posterior aspect of the right lung upper lobe extending to the region of the right hilum and contains air bronchogram likely represent pneumonia. Adjacent foci of ground-glass opacities and nodular opacities noted. D/W DR. SPENCER PATIENT NEEDS TO BE ADMITTED FOR IV ANTIBIOTICS AND RAULITO Robledo for pul. consult
[2018-07-31 17:47] VITALS: RESP 20
[2018-07-31] MEDS: Azithromycin 500 MG in Sodium Chloride 0.9% 250 ML IVPB SCH (19:38)
--- NOTE | 2018-07-31 22:04 | CP.PCM.PN ---
Subjective - Date & Time of Evaluation Date of Evaluation: 07/31/18 Time of Evaluation: 21:00 - Subjective Subjective: dictated Objective - Vital Signs/Intake and Output Vital Signs (last 24 hours): Temp Pulse Resp BP Pulse Ox 97.9 F 66 20 128/78 95 07/31/18 18:26 07/31/18 18:26 07/31/18 18:26 07/31/18 18:26 07/31/18 18:26 - Medications Medications: Current Medications Acetaminophen (Tylenol 325mg Tab) 650 mg PO Q4 PRN PRN Reason: Fever >100.4 F Last Admin: 07/31/18 09:13 Dose: 650 mg Apixaban (Eliquis) 5 mg PO BID [facility] Last Admin: 07/31/18 17:50 Dose: 5 mg Aspirin (Ecotrin) 81 mg PO DAILY [facility] Last Admin: 07/31/18 09:13 Dose: 81 mg Benzocaine/Menthol (Cepacol Sore Throat) 1 francisco MT QID [facility] Last Admin: 07/31/18 17:50 Dose: 1 [place]isco Cyanocobalamin (Vitamin B12 1000 Mcg Tab) 2,000 mcg PO DAILY [facility] Last Admin: 07/31/18 09:13 Dose: 2,000 mcg Diltiazem HCl (Cardizem) 30 mg PO Q6 [facility] Last Admin: 07/31/18 17:49 Dose: 30 mg Folic Acid (Folic Acid) 1 mg PO DAILY [facility] Last Admin: 07/31/18 09:13 Dose: 1 mg Guaifenesin (Robitussin) 200 mg PO QID [facility] Last Admin: 07/31/18 17:50 Dose: 200 mg Home Med (Patient's Own Medication) 1 tab PO Q12H [facility] Last Admin: 07/31/18 20:31 Dose: 1 tab Azithromycin 500 mg/ Sodium (Chloride) 250 mls @ 250 mls/hr IVPB Q24H [facility]; Protocol Last Admin: 07/31/18 19:38 Dose: 250 mls/hr Piperacillin Sod/Tazobactam (Sod 3.375 gm/ Sodium Chloride) 100 mls @ 200 mls/h r IVPB Q6H [facility]; Protocol Last Admin: 07/31/18 17:30 Dose: 200 mls/hr Metoprolol Succinate (Toprol Xl) 50 mg PO DAILY [facility] Last Admin: 07/31/18 09:13 Dose: 50 mg Multivitamins (Hexavitamin) 1 tab PO DAILY [facility] Last Admin: 07/31/18 09:13 Dose: 1 tab Rosuvastatin Calcium (Crestor) 5 mg PO HS [facility] Last Admin: 07/30/18 21:22 Dose: 5 mg Valproate Sodium (Depakene Cap) 1,000 mg PO Q12H [facility] Last Admin: 07/31/18 20:30 Dose: 1,000 mg - Labs Labs: 07/30/18 07:14 07/30/18 07:14
--- NOTE | 2018-08-01 03:24 | PN ---
DATE: 07/31/2018 SUBJECTIVE: The patient has no fever today. He is feeling better. He is coughing a lot. He is congested. His appetite is better. No nausea or vomiting. PHYSICAL EXAMINATION: VITAL SIGNS: Blood pressure 128/78, pulse 66, respiratory rate 18, and temperature 97.9 LUNGS: Positive scattered rales and rhonchi. CARDIOVASCULAR SYSTEM: S1 and S2 regular. ABDOMEN: Soft. ASSESSMENT: 1. Pneumonia. 2. Hypertension. 3. Type 2 diabetes. PLAN: Antibiotics. Accu-chek sliding scale. Discontinue IV fluids. Monitor the patient. Durga Moody MD
[2018-08-01] MEDS: Piperacillin/Tazobact 3.375 GM in Sodium Chloride 100 ML IVPB SCH ×4 (05:30→21:29)
[2018-08-01 07:48] LABS: BASO % 0.7 % (0.0-2.0); EOS # 0.7 K/uL (0.0-0.7); EOS % 11.1 % (0.0-4.0); LYMPH % 30.6 % (20.0-40.0); MEAN CELL VOLUME 88.4 fL (80.0-94.0); MEAN CORPUSCULAR HEMOGLOBIN 28.7 pg (27.0-31.0); MEAN CORPUSCULAR HGB CONC 32.5 g/dL (33.0-37.0); MEAN PLATELET VOLUME 10.3 fL (7.2-11.7); MONO # 1.1 K/uL (0.0-0.8); MONO % 17.5 % (0.0-10.0); NEUT # 2.6 K/uL (1.8-7.0); NEUT % 40.1 % (50.0-75.0); RBC 5.21 Mil/uL (4.40-5.90); WHITE BLOOD COUNT 6.4 K/uL (4.8-10.8)
[2018-08-01 08:12] LABS: BLOOD UREA NITROGEN 9 mg/dL (9-20); CALCIUM 10.7 mg/dl (8.6-10.4); GFR NON-AFRICAN AMERICAN > 60
[2018-08-01] MEDS: Multiple Vitamins Tab PO SCH (09:12)
[2018-08-01] MEDS: guaiFENesin 200 mg/10 ml Syrup UD PO SCH ×4 (09:12→21:10)
[2018-08-01] MEDS: BRIVIACT 100 MG PO SCH ×2 (09:12→21:11)
[2018-08-01] MEDS: Benzocaine/Menthol (Cepacol) Lozenge MT SCH ×4 (09:14→21:13)
[2018-08-01] MEDS: Metoprolol Succinate 50 mg XL Tab PO SCH (09:17)
--- NOTE | 2018-08-01 19:58 | CP.PCM.PN ---
Subjective - Date & Time of Evaluation Date of Evaluation: 08/01/18 Time of Evaluation: 18:00 - Subjective Subjective: Patient seen and examined Lying comfortably in no distress Cough and shortness of breath much improved Afebrile Wants to go home Objective - Vital Signs/Intake and Output Vital Signs (last 24 hours): Temp Pulse Resp BP Pulse Ox 98.4 F 86 20 127/78 98 08/01/18 15:00 08/01/18 16:00 08/01/18 15:00 08/01/18 15:00 08/01/18 15:00 Intake and Output: 08/01/18 08/02/18 18:59 06:59 Output Total 1250 Balance -1250 - Medications Medications: Current Medications Acetaminophen (Tylenol 325mg Tab) 650 mg PO Q4 PRN PRN Reason: Fever >100.4 F Last Admin: 07/31/18 22:35 Dose: 650 mg Apixaban (Eliquis) 5 mg PO BID [facility] Last Admin: 08/01/18 18:30 Dose: 5 mg Aspirin (Ecotrin) 81 mg PO DAILY [facility] Last Admin: 08/01/18 09:12 Dose: 81 mg Benzocaine/Menthol (Cepacol Sore Throat) 1 francisco MT QID [facility] Last Admin: 08/01/18 18:29 Dose: 1 francisco Cyanocobalamin (Vitamin B12 1000 Mcg Tab) 2,000 mcg PO DAILY [facility] Last Admin: 08/01/18 09:13 Dose: 2,000 mcg Diltiazem HCl (Cardizem) 30 mg PO Q6 [facility] Last Admin: 08/01/18 18:29 Dose: 30 mg Folic Acid (Folic Acid) 1 mg PO DAILY [facility] Last Admin: 08/01/18 09:12 Dose: 1 mg Guaifenesin (Robitussin) 200 mg PO QID [facility] Last Admin: 08/01/18 18:29 Dose: 200 mg Home Med (Patient's Own Medication) 1 tab PO Q12H [facility] Last Admin: 08/01/18 09:12 Dose: 1 tab Azithromycin 500 mg/ Sodium (Chloride) 250 mls @ 250 mls/hr IVPB Q24H [facility]; Protocol Last Admin: 07/31/18 19:38 Dose: 250 mls/hr Piperacillin Sod/Tazobactam (Sod 3.375 gm/ Sodium Chloride) 100 mls @ 200 mls/hr IVPB Q6H [facility]; Protocol Last Admin: 08/01/18 16:31 Dose: 200 mls/hr Metoprolol Succinate (Toprol Xl) 50 mg PO DAILY [facility] Last Admin: 08/01/18 09:17 Dose: 50 mg Multivitamins (Hexavitamin) 1 tab PO DAILY [facility] Last Admin: 08/01/18 09:12 Dose: 1 tab Rosuvastatin Calcium (Crestor) 5 mg PO HS [facility] Last Admin: 07/31/18 22:09 Dose: 5 mg Valproate Sodium (Depakene Cap) 1,000 mg PO Q12H [facility] Last Admin: 08/01/18 09:13 Dose: 1,000 mg - Labs Labs: 08/01/18 07:41 08/01/18 07:41 - Head Exam Head Exam: ATRAUMATIC, NORMOCEPHALIC - ENT Exam ENT Exam: Mucous Membranes Moist - Neck Exam Neck Exam: Normal Inspection - Respiratory Exam Respiratory Exam: Clear to Ausculation Bilateral - Cardiovascular Exam Cardiovascular Exam: REGULAR RHYTHM - GI/Abdominal Exam GI & Abdominal Exam: Soft, Normal Bowel Sounds Assessment and Plan (1) Pneumonia Assessment & Plan: Repeat chest x-ray in a.m. Continue antibiotics Continue present treatment Status: Acute
[2018-08-01] MEDS: Azithromycin 500 MG in Sodium Chloride 0.9% 250 ML IVPB SCH (20:14)
--- NOTE | 2018-08-01 20:44 | CP.PCM.PN ---
Subjective - Date & Time of Evaluation Date of Evaluation: 07/31/18 Time of Evaluation: 07:30 - Subjective Subjective: Patient seen and examined No cardiac events noted Denies chest pain and dyspnea Review Of Systems Constitutional: Positive for: Fever, Chills, Weakness. Negative for: Sweats ENT: Negative for: Throat Pain Respiratory: Positive for: Cough, Shortness of Breath Gastrointestinal: Negative for: Nausea, Vomiting Neurological: Negative for: Weakness, Numbness, Headache, Dizziness Physical Exam - Physical Exam Appears: Non-toxic, Other (weak, barely able to sit up ) Skin: Normal Color, Warm, Dry Head: Atraumatic, Normacephalic Oral Mucosa: Moist Throat: Normal, No Erythema, No Exudate Neck: Normal ROM, Supple Chest: Symmetrical, No Deformity Cardiovascular: Rhythm Regular, No Murmur, Other (tachycardic) Respiratory: No Accessory Muscle Use, No Rales, No Rhonchi, No Wheezing Gastrointestinal/Abdominal: Soft, No Tenderness Extremity: Capillary Refill (<2 seconds) Extremity: Bilateral: Atraumatic, Normal Color And Temperature, Normal ROM Neurological/Psych: Oriented x3, Normal Speech, Normal Cognition Gait: Unable To Assess Objective - Vital Signs/Intake and Output Vital Signs (last 24 hours): Temp Pulse Resp BP Pulse Ox 98.4 F 86 20 127/78 98 08/01/18 15:00 08/01/18 16:00 08/01/18 15:00 08/01/18 15:00 08/01/18 15:00 Intake and Output: 08/01/18 08/02/18 18:59 06:59 Output Total 1250 Balance -1250 - Medications Medications: Current Medications Acetaminophen (Tylenol 325mg Tab) 650 mg PO Q4 PRN PRN Reason: Fever >100.4 F Last Admin: 07/31/18 22:35 Dose: 650 mg Apixaban (Eliquis) 5 mg PO BID [facility] Last Admin: 08/01/18 18:30 Dose: 5 mg Aspirin (Ecotrin) 81 mg PO DAILY [facility] Last Admin: 08/01/18 09:12 Dose: 81 mg Benzocaine/Menthol (Cepacol Sore Throat) 1 francisco MT QID [facility] Last Admin: 08/01/18 18:29 Dose: 1 francisco Cyanocobalamin (Vitamin B12 1000 Mcg Tab) 2,000 mcg PO DAILY [facility] Last Admin: 08/01/18 09:13 Dose: 2,000 mcg Diltiazem HCl (Cardizem) 30 mg PO Q6 [facility] Last Admin: 08/01/18 18:29 Dose: 30 mg Folic Acid (Folic Acid) 1 mg PO DAILY [facility] Last Admin: 08/01/18 09:12 Dose: 1 mg Guaifenesin (Robitussin) 200 mg PO QID [facility] Last Admin: 08/01/18 18:29 Dose: 200 mg Home Med (Patient's Own Medication) 1 tab PO Q12H [facility] Last Admin: 08/01/18 09:12 Dose: 1 tab Azithromycin 500 mg/ Sodium (Chloride) 250 mls @ 250 mls/hr IVPB Q24H [facility]; Protocol Last Admin: 07/31/18 19:38 Dose: 250 mls/hr Piperacillin Sod/Tazobactam (Sod 3.375 gm/ Sodium Chloride) 100 mls @ 200 mls/hr IVPB Q6H [facility]; Protocol Last Admin: 08/01/18 16:31 Dose: 200 mls/hr Metoprolol Succinate (Toprol Xl) 50 mg PO DAILY [facility] Last Admin: 08/01/18 09:17 Dose: 50 mg Multivitamins (Hexavitamin) 1 tab PO DAILY [facility] Last Admin: 08/01/18 09:12 Dose: 1 tab Rosuvastatin Calcium (Crestor) 5 mg PO HS [facility] Last Admin: 07/31/18 22:09 Dose: 5 mg Valproate Sodium (Depakene Cap) 1,000 mg PO Q12H [facility] Last Admin: 08/01/18 09:13 Dose: 1,000 mg - Labs Labs: 08/01/18 07:41 08/01/18 07:41 Assessment and Plan - Assessment and Plan (Free Text) Assessment: Rapid A fib on Cardizem. Rate controlled Eliquis CVA HTN Pneumonia
--- NOTE | 2018-08-01 20:44 | CP.PCM.PN ---
Subjective - Date & Time of Evaluation Date of Evaluation: 07/30/18 Time of Evaluation: 07:20 - Subjective Subjective: Patient seen and evaluated denies chest pain and dyspnea Review Of Systems Constitutional: Positive for: Fever, Chills, Weakness. Negative for: Sweats ENT: Negative for: Throat Pain Respiratory: Positive for: Cough, Shortness of Breath Gastrointestinal: Negative for: Nausea, Vomiting Neurological: Negative for: Weakness, Numbness, Headache, Dizziness Physical Exam - Physical Exam Appears: Non-toxic, Other (weak, barely able to sit up ) Skin: Normal Color, Warm, Dry Head: Atraumatic, Normacephalic Oral Mucosa: Moist Throat: Normal, No Erythema, No Exudate Neck: Normal ROM, Supple Chest: Symmetrical, No Deformity Cardiovascular: Rhythm Regular, No Murmur, Other (tachycardic) Respiratory: No Accessory Muscle Use, No Rales, No Rhonchi, No Wheezing Gastrointestinal/Abdominal: Soft, No Tenderness Extremity: Capillary Refill (<2 seconds) Extremity: Bilateral: Atraumatic, Normal Color And Temperature, Normal ROM Neurological/Psych: Oriented x3, Normal Speech, Normal Cognition Gait: Unable To Assess Objective - Vital Signs/Intake and Output Vital Signs (last 24 hours): Temp Pulse Resp BP Pulse Ox 98.4 F 86 20 127/78 98 08/01/18 15:00 08/01/18 16:00 08/01/18 15:00 08/01/18 15:00 08/01/18 15:00 Intake and Output: 08/01/18 08/02/18 18:59 06:59 Output Total 1250 Balance -1250 - Medications Medications: Current Medications Acetaminophen (Tylenol 325mg Tab) 650 mg PO Q4 PRN PRN Reason: Fever >100.4 F Last Admin: 07/31/18 22:35 Dose: 650 mg Apixaban (Eliquis) 5 mg PO BID [facility] Last Admin: 08/01/18 18:30 Dose: 5 mg Aspirin (Ecotrin) 81 mg PO DAILY [facility] Last Admin: 08/01/18 09:12 Dose: 81 mg Benzocaine/Menthol (Cepacol Sore Throat) 1 francisco MT QID [facility] Last Admin: 08/01/18 18:29 Dose: 1 francisco Cyanocobalamin (Vitamin B12 1000 Mcg Tab) 2,000 mcg PO DAILY [facility] Last Admin: 08/01/18 09:13 Dose: 2,000 mcg Diltiazem HCl (Cardizem) 30 mg PO Q6 [facility] Last Admin: 08/01/18 18:29 Dose: 30 mg Folic Acid (Folic Acid) 1 mg PO DAILY [facility] Last Admin: 08/01/18 09:12 Dose: 1 mg Guaifenesin (Robitussin) 200 mg PO QID [facility] Last Admin: 08/01/18 18:29 Dose: 200 mg Home Med (Patient's Own Medication) 1 tab PO Q12H [facility] Last Admin: 08/01/18 09:12 Dose: 1 tab Azithromycin 500 mg/ Sodium (Chloride) 250 mls @ 250 mls/hr IVPB Q24H [facility]; Protocol Last Admin: 07/31/18 19:38 Dose: 250 mls/hr Piperacillin Sod/Tazobactam (Sod 3.375 gm/ Sodium Chloride) 100 mls @ 200 mls/hr IVPB Q6H [facility]; Protocol Last Admin: 08/01/18 16:31 Dose: 200 mls/hr Metoprolol Succinate (Toprol Xl) 50 mg PO DAILY [facility] Last Admin: 08/01/18 09:17 Dose: 50 mg Multivitamins (Hexavitamin) 1 tab PO DAILY [facility] Last Admin: 08/01/18 09:12 Dose: 1 tab Rosuvastatin Calcium (Crestor) 5 mg PO HS [facility] Last Admin: 07/31/18 22:09 Dose: 5 mg Valproate Sodium (Depakene Cap) 1,000 mg PO Q12H [facility] Last Admin: 08/01/18 09:13 Dose: 1,000 mg - Labs Labs: 08/01/18 07:41 08/01/18 07:41 Assessment and Plan - Assessment and Plan (Free Text) Assessment: Rapid A fib on Cardizem. Rate controlled Eliquis CVA HTN Pneumonia
--- NOTE | 2018-08-01 20:45 | CP.PCM.PN ---
Subjective - Date & Time of Evaluation Date of Evaluation: 08/01/18 Time of Evaluation: 10:10 - Subjective Subjective: Patient seen and examined wants to go home Denies chest pain and dyspnea Review Of Systems Constitutional: Positive for: Fever, Chills, Weakness. Negative for: Sweats ENT: Negative for: Throat Pain Respiratory: Positive for: Cough, Shortness of Breath Gastrointestinal: Negative for: Nausea, Vomiting Neurological: Negative for: Weakness, Numbness, Headache, Dizziness Physical Exam - Physical Exam Appears: Non-toxic, Other (weak, barely able to sit up ) Skin: Normal Color, Warm, Dry Head: Atraumatic, Normacephalic Oral Mucosa: Moist Throat: Normal, No Erythema, No Exudate Neck: Normal ROM, Supple Chest: Symmetrical, No Deformity Cardiovascular: Rhythm Regular, No Murmur, Other (tachycardic) Respiratory: No Accessory Muscle Use, No Rales, No Rhonchi, No Wheezing Gastrointestinal/Abdominal: Soft, No Tenderness Extremity: Capillary Refill (<2 seconds) Extremity: Bilateral: Atraumatic, Normal Color And Temperature, Normal ROM Neurological/Psych: Oriented x3, Normal Speech, Normal Cognition Gait: Unable To Assess Objective - Vital Signs/Intake and Output Vital Signs (last 24 hours): Temp Pulse Resp BP Pulse Ox 98.4 F 86 20 127/78 98 08/01/18 15:00 08/01/18 16:00 08/01/18 15:00 08/01/18 15:00 08/01/18 15:00 Intake and Output: 08/01/18 08/02/18 18:59 06:59 Output Total 1250 Balance -1250 - Medications Medications: Current Medications Acetaminophen (Tylenol 325mg Tab) 650 mg PO Q4 PRN PRN Reason: Fever >100.4 F Last Admin: 07/31/18 22:35 Dose: 650 mg Apixaban (Eliquis) 5 mg PO BID [facility] Last Admin: 08/01/18 18:30 Dose: 5 mg Aspirin (Ecotrin) 81 mg PO DAILY [facility] Last Admin: 08/01/18 09:12 Dose: 81 mg Benzocaine/Menthol (Cepacol Sore Throat) 1 francisco MT QID [facility] Last Admin: 08/01/18 18:29 Dose: 1 francisco Cyanocobalamin (Vitamin B12 1000 Mcg Tab) 2,000 mcg PO DAILY [facility] Last Admin: 08/01/18 09:13 Dose: 2,000 mcg Diltiazem HCl (Cardizem) 30 mg PO Q6 [facility] Last Admin: 08/01/18 18:29 Dose: 30 mg Folic Acid (Folic Acid) 1 mg PO DAILY [facility] Last Admin: 08/01/18 09:12 Dose: 1 mg Guaifenesin (Robitussin) 200 mg PO QID [facility] Last Admin: 08/01/18 18:29 Dose: 200 mg Home Med (Patient's Own Medication) 1 tab PO Q12H [facility] Last Admin: 08/01/18 09:12 Dose: 1 tab Azithromycin 500 mg/ Sodium (Chloride) 250 mls @ 250 mls/hr IVPB Q24H [facility]; Protocol Last Admin: 07/31/18 19:38 Dose: 250 mls/hr Piperacillin Sod/Tazobactam (Sod 3.375 gm/ Sodium Chloride) 100 mls @ 200 mls/hr IVPB Q6H [facility]; Protocol Last Admin: 08/01/18 16:31 Dose: 200 mls/hr Metoprolol Succinate (Toprol Xl) 50 mg PO DAILY [facility] Last Admin: 08/01/18 09:17 Dose: 50 mg Multivitamins (Hexavitamin) 1 tab PO DAILY [facility] Last Admin: 08/01/18 09:12 Dose: 1 tab Rosuvastatin Calcium (Crestor) 5 mg PO HS [facility] Last Admin: 07/31/18 22:09 Dose: 5 mg Valproate Sodium (Depakene Cap) 1,000 mg PO Q12H [facility] Last Admin: 08/01/18 09:13 Dose: 1,000 mg - Labs Labs: 08/01/18 07:41 08/01/18 07:41 Assessment and Plan - Assessment and Plan (Free Text) Assessment: Rapid A fib on Cardizem. Rate controlled Eliquis CVA HTN Pneumonia
--- NOTE | 2018-08-01 21:30 | CP.PCM.PN ---
Subjective - Date & Time of Evaluation Date of Evaluation: 08/01/18 Time of Evaluation: 08:40 - Subjective Subjective: dictated Objective - Vital Signs/Intake and Output Vital Signs (last 24 hours): Temp Pulse Resp BP Pulse Ox 98.4 F 86 20 127/78 98 08/01/18 15:00 08/01/18 16:00 08/01/18 15:00 08/01/18 15:00 08/01/18 15:00 Intake and Output: 08/01/18 08/02/18 18:59 06:59 Output Total 1250 Balance -1250 - Medications Medications: Current Medications Acetaminophen (Tylenol 325mg Tab) 650 mg PO Q4 PRN PRN Reason: Fever >100.4 F Last Admin: 07/31/18 22:35 Dose: 650 mg Apixaban (Eliquis) 5 mg PO BID [facility] Last Admin: 08/01/18 18:30 Dose: 5 mg Aspirin (Ecotrin) 81 mg PO DAILY [facility] Last Admin: 08/01/18 09:12 Dose: 81 mg Benzocaine/Menthol (Cepacol Sore Throat) 1 francisco MT QID [facility] Last Admin: 08/01/18 21:13 Dose: 1 francisco Cyanocobalamin (Vitamin B12 1000 Mcg Tab) 2,000 mcg PO DAILY [facility] Last Admin: 08/01/18 09:13 Dose: 2,000 mcg Diltiazem HCl (Cardizem) 30 mg PO Q6 [facility] Last Admin: 08/01/18 18:29 Dose: 30 mg Folic Acid (Folic Acid) 1 mg PO DAILY [facility] Last Admin: 08/01/18 09:12 Dose: 1 mg Guaifenesin (Robitussin) 200 mg PO QID [facility] Last Admin: 08/01/18 21:10 Dose: 200 mg Home Med (Patient's Own Medication) 1 tab PO Q12H [facility] Last Admin: 08/01/18 21:11 Dose: 1 tab Azithromycin 500 mg/ Sodium (Chloride) 250 mls @ 250 mls/hr IVPB Q24H [facility]; Protocol Last Admin: 08/01/18 20:14 Dose: 250 mls/hr Piperacillin Sod/Tazobactam (Sod 3.375 gm/ Sodium Chloride) 100 mls @ 200 mls/hr IVPB Q6H [facility]; Protocol Last Admin: 08/01/18 21:29 Dose: 200 mls/hr Metoprolol Succinate (Toprol Xl) 50 mg PO DAILY [facility] Last Admin: 08/01/18 09:17 Dose: 50 mg Multivitamins (Hexavitamin) 1 tab PO DAILY [facility] Last Admin: 08/01/18 09:12 Dose: 1 tab Rosuvastatin Calcium (Crestor) 5 mg PO HS [facility] Last Admin: 08/01/18 21:09 Dose: 5 mg Valproate Sodium (Depakene Cap) 1,000 mg PO Q12H [facility] Last Admin: 08/01/18 21:10 Dose: 1,000 mg - Labs Labs: 08/01/18 07:41 08/01/18 07:41
[2018-08-02] MEDS: Piperacillin/Tazobact 3.375 GM in Sodium Chloride 100 ML IVPB SCH ×4 (04:55→22:46)
[2018-08-02] MEDS: BRIVIACT 100 MG PO SCH ×2 (08:52→20:31)
[2018-08-02] MEDS: guaiFENesin 200 mg/10 ml Syrup UD PO SCH ×4 (09:37→21:38)
[2018-08-02] MEDS: Metoprolol Succinate 50 mg XL Tab PO SCH (09:37)
[2018-08-02] MEDS: Benzocaine/Menthol (Cepacol) Lozenge MT SCH ×4 (09:37→21:37)
[2018-08-02] MEDS: Multiple Vitamins Tab PO SCH (09:37)
--- NOTE | 2018-08-02 11:43 | RAD ---
Chest x-ray single frontal view HISTORY: Pneumonia. COMPARISON: 07/29/2018 Findings: Worsening opacification now prominent seen throughout the right lung and at the left lung base. Cardiomegaly. Degenerative changes in the spine and shoulders. Upper lobe granulomatous changes. Impression: Worsening opacification now prominent seen throughout the right lung and at the left lung base. Cardiomegaly.
--- NOTE | 2018-08-02 11:54 | PN ---
DATE: 08/01/2018 SUBJECTIVE: Osvaldo Braun is feeling better. He is afebrile. Decreased cough. Decreased wheezing. No shortness of breath. No nausea or vomiting. PHYSICAL EXAMINATION: VITAL SIGNS: Blood pressure 132/80, pulse 80, respiratory rate 20, and temperature 99. LUNGS: Bilateral rales. Decreased air entry. CARDIOVASCULAR SYSTEM: S1 and S2, regular. ABDOMEN: Soft, nontender. Bowel sounds are positive. ASSESSMENT: 1. Pneumonia. 2. Type 2 diabetes. 3. Hypertension. PLAN: Antibiotics. Accu-chek sliding scale. Durga Moody MD
[2018-08-02] MEDS: Azithromycin 500 MG in Sodium Chloride 0.9% 250 ML IVPB SCH (19:47)
--- NOTE | 2018-08-02 23:19 | CP.PCM.PN ---
Subjective - Date & Time of Evaluation Date of Evaluation: 08/02/18 Time of Evaluation: 18:00 - Subjective Subjective: dictated Objective - Vital Signs/Intake and Output Vital Signs (last 24 hours): Temp Pulse Resp BP Pulse Ox 98.1 F 75 20 140/94 H 95 08/02/18 15:00 08/02/18 15:00 08/02/18 15:00 08/02/18 15:00 08/02/18 15:00 - Medications Medications: Current Medications Acetaminophen (Tylenol 325mg Tab) 650 mg PO Q4 PRN PRN Reason: Fever >100.4 F Last Admin: 07/31/18 22:35 Dose: 650 mg Apixaban (Eliquis) 5 mg PO BID [facility] Last Admin: 08/02/18 17:35 Dose: 5 mg Aspirin (Ecotrin) 81 mg PO DAILY [facility] Last Admin: 08/02/18 09:37 Dose: 81 mg Benzocaine/Menthol (Cepacol Sore Throat) 1 francisco MT QID [facility] Last Admin: 08/02/18 21:37 Dose: 1 francisco Cyanocobalamin (Vitamin B12 1000 Mcg Tab) 2,000 mcg PO DAILY [facility] Last Admin: 08/02/18 09:37 Dose: 2,000 mcg Diltiazem HCl (Cardizem) 30 mg PO Q6 [facility] Last Admin: 08/02/18 17:35 Dose: 30 mg Folic Acid (Folic Acid) 1 mg PO DAILY [facility] Last Admin: 08/02/18 09:37 Dose: 1 mg Guaifenesin (Robitussin) 200 mg PO QID [facility] Last Admin: 08/02/18 21:38 Dose: 200 mg Home Med (Patient's Own Medication) 1 tab PO Q12H [facility] Last Admin: 08/02/18 20:31 Dose: 1 tab Azithromycin 500 mg/ Sodium (Chloride) 250 mls @ 250 mls/hr IVPB Q24H [facility]; Protocol Last Admin: 08/02/18 19:47 Dose: 250 mls/hr Metoprolol Succinate (Toprol Xl) 50 mg PO DAILY [facility] Last Admin: 08/02/18 09:37 Dose: 50 mg Multivitamins (Hexavitamin) 1 tab PO DAILY [facility] Last Admin: 08/02/18 09:37 Dose: 1 tab Rosuvastatin Calcium (Crestor) 5 mg PO HS [facility] Last Admin: 08/02/18 21:38 Dose: 5 mg Valproate Sodium (Depakene Cap) 1,000 mg PO Q12H [facility] Last Admin: 08/02/18 20:30 Dose: 1,000 mg - Labs Labs: 08/01/18 07:41 08/01/18 07:41
--- NOTE | 2018-08-02 23:26 | CP.PCM.PN ---
Subjective - Date & Time of Evaluation Date of Evaluation: 08/02/18 Time of Evaluation: 16:15 - Subjective Subjective: Patient seen and examined wants to go home Denies chest pain and dyspnea Review Of Systems Constitutional: Positive for: Fever, Chills, Weakness. Negative for: Sweats ENT: Negative for: Throat Pain Respiratory: Positive for: Cough, Shortness of Breath Gastrointestinal: Negative for: Nausea, Vomiting Neurological: Negative for: Weakness, Numbness, Headache, Dizziness Physical Exam - Physical Exam Appears: Non-toxic, Other (weak, barely able to sit up ) Skin: Normal Color, Warm, Dry Head: Atraumatic, Normacephalic Oral Mucosa: Moist Throat: Normal, No Erythema, No Exudate Neck: Normal ROM, Supple Chest: Symmetrical, No Deformity Cardiovascular: Rhythm Regular, No Murmur, Other (tachycardic) Respiratory: No Accessory Muscle Use, No Rales, No Rhonchi, No Wheezing Gastrointestinal/Abdominal: Soft, No Tenderness Extremity: Capillary Refill (<2 seconds) Extremity: Bilateral: Atraumatic, Normal Color And Temperature, Normal ROM Neurological/Psych: Oriented x3, Normal Speech, Normal Cognition Gait: Unable To Assess Assessment and Plan - Assessment and Plan (Free Text) Assessment: Rapid A fib on Cardizem. Rate controlled Eliquis CVA HTN Pneumonia Objective - Vital Signs/Intake and Output Vital Signs (last 24 hours): Temp Pulse Resp BP Pulse Ox 98.1 F 75 20 140/94 H 95 08/02/18 15:00 08/02/18 15:00 08/02/18 15:00 08/02/18 15:00 08/02/18 15:00 - Medications Medications: Current Medications Acetaminophen (Tylenol 325mg Tab) 650 mg PO Q4 PRN PRN Reason: Fever >100.4 F Last Admin: 07/31/18 22:35 Dose: 650 mg Apixaban (Eliquis) 5 mg PO BID [facility] Last Admin: 08/02/18 17:35 Dose: 5 mg Aspirin (Ecotrin) 81 mg PO DAILY [facility] Last Admin: 08/02/18 09:37 Dose: 81 mg Benzocaine/Menthol (Cepacol Sore Throat) 1 francisco MT QID [facility] Last Admin: 08/02/18 21:37 Dose: 1 francisco Cyanocobalamin (Vitamin B12 1000 Mcg Tab) 2,000 mcg PO DAILY [facility] Last Admin: 08/02/18 09:37 Dose: 2,000 mcg Diltiazem HCl (Cardizem) 30 mg PO Q6 [facility] Last Admin: 08/02/18 17:35 Dose: 30 mg Folic Acid (Folic Acid) 1 mg PO DAILY [facility] Last Admin: 08/02/18 09:37 Dose: 1 mg Guaifenesin (Robitussin) 200 mg PO QID [facility] Last Admin: 08/02/18 21:38 Dose: 200 mg Home Med (Patient's Own Medication) 1 tab PO Q12H [facility] Last Admin: 08/02/18 20:31 Dose: 1 tab Azithromycin 500 mg/ Sodium (Chloride) 250 mls @ 250 mls/hr IVPB Q24H [facility]; Protocol Last Admin: 08/02/18 19:47 Dose: 250 mls/hr Metoprolol Succinate (Toprol Xl) 50 mg PO DAILY [facility] Last Admin: 08/02/18 09:37 Dose: 50 mg Multivitamins (Hexavitamin) 1 tab PO DAILY [facility] Last Admin: 08/02/18 09:37 Dose: 1 tab Rosuvastatin Calcium (Crestor) 5 mg PO HS [facility] Last Admin: 08/02/18 21:38 Dose: 5 mg Valproate Sodium (Depakene Cap) 1,000 mg PO Q12H [facility] Last Admin: 08/02/18 20:30 Dose: 1,000 mg - Labs Labs: 08/01/18 07:41 08/01/18 07:41
--- NOTE | 2018-08-03 03:18 | PN ---
DATE: 08/02/2018 SUBJECTIVE: The patient is afebrile. Less cough. Less shortness of breath. Less wheezing. PHYSICAL EXAMINATION: VITAL SIGNS: Blood pressure 140/98, pulse 75, respiratory rate 20, temperature 98.1, afebrile. LUNGS: Bilateral scattered rales. Decreased air entry. CARDIOVASCULAR: S1, S2 regular. ABDOMEN: Soft, nontender. Bowel sounds positive. ASSESSMENT: 1. Pneumonia. 2. Type 2 diabetes. 3. Hypertension. PLAN: Medical management, nebulizer, antibiotic, monitor patient. Durga Moody MD
[2018-08-03 07:35] LABS: BASO # 0.1 K/uL (0.0-0.2); BASO % 1.9 % (0.0-2.0); EOS # 0.9 K/uL (0.0-0.7); EOS % 15.4 % (0.0-4.0); LYMPH # 2.5 K/uL (1.0-4.3); LYMPH % 43.4 % (20.0-40.0); MEAN CELL VOLUME 88.5 fL (80.0-94.0); MEAN CORPUSCULAR HEMOGLOBIN 29.5 pg (27.0-31.0); MEAN CORPUSCULAR HGB CONC 33.4 g/dL (33.0-37.0); MEAN PLATELET VOLUME 9.5 fL (7.2-11.7); MONO # 0.8 K/uL (0.0-0.8); MONO % 13.8 % (0.0-10.0); NEUT # 1.5 K/uL (1.8-7.0); NEUT % 25.5 % (50.0-75.0); NRBC % 0.2 % (0.0-2.0); RBC 5.07 Mil/uL (4.40-5.90); RED CELL DISTRIBUTION WIDTH 14.6 % (11.5-14.5); WHITE BLOOD COUNT 5.8 K/uL (4.8-10.8)
[2018-08-03 07:52] VITALS: PULSE 82
[2018-08-03 08:19] LABS: BLOOD UREA NITROGEN 15 mg/dL (9-20); CALCIUM 10.5 mg/dl (8.6-10.4); GFR NON-AFRICAN AMERICAN > 60
[2018-08-03 08:35] VITALS: BP 136/86; TEMP 97.9; O2SAT 97
[2018-08-03] MEDS: BRIVIACT 100 MG PO SCH (08:45)
[2018-08-03] MEDS: guaiFENesin 200 mg/10 ml Syrup UD PO SCH (10:57)
[2018-08-03] MEDS: Multiple Vitamins Tab PO SCH (10:58)
[2018-08-03] MEDS: Metoprolol Succinate 50 mg XL Tab PO SCH (10:58)
[2018-08-03] MEDS: Benzocaine/Menthol (Cepacol) Lozenge MT SCH (10:58)
--- NOTE | 2018-08-03 11:43 | CP.PCM.PN ---
Subjective - Date & Time of Evaluation Date of Evaluation: 08/03/18 Time of Evaluation: 11:25 - Subjective Subjective: Patient seen today, states feels better, denies any sob, chest pain, fever, chills, abdominal pain, N/V a febrile for 48 hrs HR controlled labs and vss reviewed - stable Objective - Vital Signs/Intake and Output Vital Signs (last 24 hours): Temp Pulse Resp BP Pulse Ox 97.9 F 82 20 136/86 97 08/03/18 07:00 08/03/18 07:29 08/03/18 07:00 08/03/18 07:00 08/03/18 07:00 Intake and Output: 08/03/18 08/03/18 06:59 18:59 Intake Total 1170 Output Total 1150 Balance 20 - Medications Medications: Current Medications Acetaminophen (Tylenol 325mg Tab) 650 mg PO Q4 PRN PRN Reason: Fever >100.4 F Last Admin: 07/31/18 22:35 Dose: 650 mg Apixaban (Eliquis) 5 mg PO BID [facility] Last Admin: 08/03/18 10:57 Dose: 5 mg Aspirin (Ecotrin) 81 mg PO DAILY [facility] Last Admin: 08/03/18 10:58 Dose: 81 mg Benzocaine/Menthol (Cepacol Sore Throat) 1 franc[place] MT QID [facility] Last Admin: 08/03/18 10:58 Dose: 1 francisco Cyanocobalamin (Vitamin B12 1000 Mcg Tab) 2,000 mcg PO DAILY [facility] Last Admin: 08/03/18 10:58 Dose: 2,000 mcg Diltiazem HCl (Cardizem) 30 mg PO Q6 [facility] Last Admin: 08/03/18 05:40 Dose: Not Given Folic Acid (Folic Acid) 1 mg PO DAILY [facility] Last Admin: 08/03/18 10:57 Dose: 1 mg Guaifenesin (Robitussin) 200 mg PO QID [facility] Last Admin: 08/03/18 10:57 Dose: 200 mg Home Med (Patient's Own Medication) 1 tab PO Q12H [facility] Last Admin: 08/03/18 08:45 Dose: 1 tab Azithromycin 500 mg/ Sodium (Chloride) 250 mls @ 250 mls/hr IVPB Q24H [facility]; Protocol Last Admin: 08/02/18 19:47 Dose: 250 mls/hr Metoprolol Succinate (Toprol Xl) 50 mg PO DAILY [facility] Last Admin: 08/03/18 10:58 Dose: 50 mg Multivitamins (Hexavitamin) 1 tab PO DAILY [facility] Last Admin: 08/03/18 10:58 Dose: 1 tab Rosuvastatin Calcium (Crestor) 5 mg PO HS [facility] Last Admin: 08/02/18 21:38 Dose: 5 mg Valproate Sodium (Depakene Cap) 1,000 mg PO Q12H [facility] Last Admin: 08/03/18 08:45 Dose: 1,000 mg - Labs Labs: 08/03/18 07:26 08/03/18 07:26 Assessment and Plan - Assessment and Plan (Free Text) Assessment: A/P 58 yr old male with pmhx of Cardia Arrhythmia, CVA, Diabetes, HTN, Hypercholesterolemia, Seizures admitted with 2 days of fever, cough congestion, sob ,weakness, chills admitted with pneumonia and afib with RVR Patient clinically improved with IV antibiotics blood culture and urine culture - negative so far seen by Dr. Robledo today , cleared for discharge home today and repeat cxr in 1 week, continue levaquin x 5 more days D/w Dr. Moody, cleared for discharge home today and f/u with Dr. Heidy coppola in 1 week Discharge plan discussed with patient who understands and agrees with plan prescription given to repeat cxr in 1 week
--- NOTE | 2018-08-03 21:08 | CP.PCM.DIS ---
Provider - Provider Date of Admission: 07/29/18 16:52 Attending physician: Durga Moody MD Consults: 07/29/18 18:35 Cardiology Consult Routine Comment: misha Consulting Provider: Jaswant Vizcaino Consulting Physician: Jaswant Vizcaino Reason for Consult: [email or web address] Pulmonology Consult Routine Comment: Consulting Provider: Bg Robledo Consulting Physician: Bg Robledo Reason for Consult: pneumonia 07/29/18 20:19 Social Work Referral Routine Comment: 8 Physician Instructions: Reason For Exam: dorothea score 8 Time Spent in preparation of Discharge (in minutes): 30 Hospital Course - Lab Results Lab Results: Micro Results 07/29/18 16:33 Blood Blood Culture - Final NO GROWTH AFTER 5 DAYS 07/29/18 16:33 Blood Gram Stain - Final TEST NOT PERFORMED 07/29/18 16:33 Blood Blood Culture - Final NO GROWTH AFTER 5 DAYS 07/29/18 16:33 Blood Gram Stain - Final TEST NOT PERFORMED 07/29/18 22:42 Urine Random Urine Culture - Final No Growth (<1,000 CFU/ML) Most Recent Lab Values WBC 5.8 K/uL (4.8-10.8) 08/03/18 07:26 RBC 5.07 Mil/uL (4.40-5.90) 08/03/18 07:26 Hgb 15.0 g/dL (12.0-18.0) 08/03/18 07:26 Hct 44.8 % (35.0-51.0) 08/03/18 07:26 MCV 88.5 fL (80.0-94.0) 08/03/18 07:26 MCH 29.5 pg (27.0-31.0) 08/03/18 07:26 MCHC 33.4 g/dL (33.0-37.0) 08/03/18 07:26 RDW 14.6 % (11.5-14.5) H 08/03/18 07:26 Plt Count 203 K/uL (130-400) 08/03/18 07:26 MPV 9.5 fL (7.2-11.7) 08/03/18 07:26 Neut % (Auto) 25.5 % (50.0-75.0) L 08/03/18 07:26 Lymph % (Auto) 43.4 % (20.0-40.0) H 08/03/18 07:26 [place] % (Auto) 13.8 % (0.0-10.0) H 08/03/18 07:26 Eos % (Auto) 15.4 % (0.0-4.0) H 08/03/18 07:26 Baso % (Auto) 1.9 % (0.0-2.0) 08/03/18 07: Neut # (Auto) 1.5 K/uL (1.8-7.0) L 08/03/18 07: Lymph # (Auto) 2.5 K/uL (1.0-4.3) 08/03/18 07: [place] # (Auto) 0.8 K/uL (0.0-0.8) 08/03/18 07: Eos # (Auto) 0.9 K/uL (0.0-0.7) H 08/03/18 07: Baso # (Auto) 0.1 K/uL (0.0-0.2) 08/03/18 07:26 pO2 29 mm/Hg (30-55) L 07/29/18 16:29 VBG pH 7.41 (7.32-7.43) 07/29/18 16:29 VBG pCO2 36 mmHg (40-60) L 07/29/18 16:29 VBG HCO3 22.7 mmol/L 07/29/18 16:29 VBG Total CO2 23.9 mmol/L (22-28) 07/29/18 16:29 VBG O2 Sat (Calc) 69.5 % (40-65) H 07/29/18 16:29 VBG Base Excess -1.4 mmol/L (0.0-2.0) L 07/29/18 16:29 VBG Potassium 4.0 mmol/L (3.6-5.2) 07/29/18 16:29 Sodium 143.0 mmol/l (132-148) 07/29/18 16:29 Chloride 110.0 mmol/L (98-107) H 07/29/18 16:29 Glucose 157 mg/dl (75-110) H 07/29/18 16:29 Lactate 2.3 mmol/L (0.7-2.1) H 07/29/18 16:29 Sodium 139 mmol/L (132-148) 08/03/18 07:26 Potassium 4.1 mmol/L (3.6-5.2) 08/03/18 07:26 Chloride 107 mmol/L (98-107) 08/03/18 07:26 Carbon Dioxide 29 mmol/L (22-30) 08/03/18 07:26 Anion Gap 8 (10-20) L 08/03/18 07:26 BUN 15 mg/dL (9-20) 08/03/18 07:26 Creatinine 1.0 mg/dL (0.8-1.5) 08/03/18 07:26 Est GFR ( Amer) > 60 08/03/18 07:26 Est GFR (Non-Af Amer) > 60 08/03/18 07:26 POC Glucose (mg/dL) 189 mg/dL (65-110) H 08/01/18 10:54 Random Glucose 100 mg/dL (75-110) D 08/03/18 07:26 Calcium 10.5 mg/dl (8.6-10.4) H 08/03/18 07:26 Total Bilirubin 0.9 mg/dL (0.2-1.3) 07/29/18 16:33 AST 42 U/L (17-59) 07/29/18 16:33 ALT 18 U/L (21-72) L D 07/29/18 16:33 Alkaline Phosphatase 57 U/L (38-126) 07/29/18 16:33 Total Protein 7.9 g/dL (6.3-8.3) 07/29/18 16:33 Albumin 4.3 g/dL (3.5-5.0) 07/29/18 16:33 Globulin 3.6 gm/dL (2.2-3.9) 07/29/18 16:33 Albumin/Globulin Ratio 1.2 (1.0-2.1) 07/29/18 16:33 Venous Blood Potassium 4.0 mmol/L (3.6-5.2) 07/29/18 16:29 Urine Color Anisa (YELLOW) 07/29/18 22:42 Urine Clarity Hazy (Clear) 07/29/18 22:42 Urine pH 5.0 (5.0-8.0) 07/29/18 22:42 Ur Specific [place] 1.035 (1.003-1.030) H 07/29/18 22:42 Urine Protein 1+ mg/dL (NEGATIVE) H 07/29/18 22:42 Urine Glucose (UA) 1+ mg/dL (Normal) H 07/29/18 22:42 Urine Ketones Trace mg/dL (NEGATIVE) 07/29/18 22:42 Urine Blood Negative (NEGATIVE) 07/29/18 22:42 Urine Nitrate Negative (NEGATIVE) 07/29/18 22:42 Urine Bilirubin Negative (NEGATIVE) 07/29/18 22:42 Urine Urobilinogen Normal mg/dL (0.2-1.0) 07/29/18 22:42 Ur Leukocyte Esterase Neg Prasad/uL (Negative) 07/29/18 22:42 Urine WBC (Auto) 2 /hpf (0-5) 07/29/18 22:42 Urine RBC (Auto) 9 /hpf (0-3) H 07/29/18 22:42 Ur Squamous Epith Cells < 1 /hpf (0-5) 07/29/18 22:42 Urine Bacteria Occ (<OCC) H 07/29/18 22:42 Influenza Typ A,B (EIA) Negative for flu a/b (NEGATIVE) 07/29/18 17:51 Discharge Exam - Head Exam Head Exam: ATRAUMATIC, NORMOCEPHALIC Discharge Plan - Discharge Medications Prescriptions: diltiaZEM CD [Cardizem CD] 240 mg PO DAILY #30 c24 levoFLOXacin [Levaquin] 500 mg PO DAILY #5 tab - Follow Up Plan Condition: IMPROVED Disposition: HOME/ ROUTINE Instructions: Heart Healthy Diet, Levofloxacin (Systemic), Pneumonia, Adult (DC), Fever, Adult (DC), Diltiazem, Atrial Fibrillation (DC) Additional Instructions: Please follow up with Dr. Moody office in 1 week Please continue antibiotics for 5 more days Please repeat CXR in 1 week (follow up for pneumonia) Please follow up with Dr. Schmidt office Please continue medication as per med. rec. Please [facility] Referrals: Tashi Huffman MD [Staff Provider] - Durga Moody MD [Staff Provider] -
--- NOTE | 2018-08-04 05:33 | DS ---
DISCHARGE DIAGNOSES: 1. Pneumonia. 2. Diabetes. 3. Hypertension. 4. Hyperlipidemia. HISTORY OF PRESENT ILLNESS: This is a 58-year-old male with history of diabetes, hypertension, hyperlipidemia, who is compliant with diet, medication, and followup. He came in because of cough, congestion, shortness of breath, fever, chills, rigors, found to have pneumonia. The patient was started on antibiotics, and the patient's condition improved. His fever went down, and now the patient is for discharge. He will require oral Augmentin for four to five days. No nausea or vomiting. No chest pain. PHYSICAL EXAMINATION: VITAL SIGNS: Blood pressure 136/86, pulse 78, respiratory rate 20, temperature 97.9. LUNGS: Bilateral scattered rales. No rhonchi. CARDIOVASCULAR SYSTEM: PMI not localized. S1, S2 regular. ABDOMEN: Soft. PLAN: Discharge the patient. Monitor the patient. The patient will be followed up by me as an outpatient. Durga Moody MD
== END 2018-08-03 13:39 | disposition home or self-care (01) | DRG 194 ==
LOC: C.ER 15:11 → C.3T 16:52 → C.9E 17:59 → C.6T 18:16
PROVIDERS: ADMIT Internal Medicine; ATTEND Internal Medicine
DX: J18.9 Pneumonia, unspecified organism (principal); I69.354 Hemiplegia and hemiparesis following cerebral infarction affecting left non-dominant side; I48.2 Chronic atrial fibrillation; Z79.01 Long term (current) use of anticoagulants; I10 Essential (primary) hypertension; E86.0 Dehydration; E11.9 Type 2 diabetes mellitus without complications; E78.00 Pure hypercholesterolemia, unspecified; G40.909 Epilepsy, unspecified, not intractable, without status epilepticus; J45.909 Unspecified asthma, uncomplicated

== ENCOUNTER 2018-08-06 13:43 | Outpatient (CLI) | payer MEDICARE, MEDICAID | END 2018-08-06 13:44 | disposition home or self-care (01) | LOC: C.RADH 13:43 ==